=== PATIENT | male | born 1945 | race Caucasian/White ===

== ENCOUNTER → 2020-08-01 | Outpatient (CLI) | payer OTHER ==
[~2020-08-01] MED LIST: ACET500C OR; ALLE25CA OR; COUM10TA OR; IBUP400T OR; LOVE1INJ SC; PROT1TAB2 OR; TERA10CA3 PO; TYLENOL PM PO; [UNRECOGNIZED DRUG - OTHER] PO
--- NOTE | 2020-08-02 02:03 | REP ---
INDICATION: PRIMARY OSTEOARTHRITIS RIGHT KNEE COMPARISON: None. TECHNIQUE: AP, lateral, bilateral oblique views right and left knee. FINDINGS: Right knee demonstrates subchondral sclerosis along the tibial plateau and posterior patellar contour along with associated tricompartmental joint space narrowing. Cortical irregularity and early spurring identified primarily involving the femoral condyles and patella. No acute fracture or dislocation. No definite effusion. Right knee demonstrates subchondral sclerosis involving the tibial plateau and posterior patellar contour along with tricompartmental joint space narrowing. Cortical irregularity and early spurring identified involving the femoral condyles and patella. No acute fracture or dislocation. No definite effusion. IMPRESSION: Moderate relatively symmetric tricompartmental osteoarthritic degenerative changes. <Electronically signed by Apollo Rea > 08/02/20 0159
== END ==
LOC: M WUC 14:10
PROVIDERS: ATTEND Internal Medicine
DX: M17.11 Unilateral primary osteoarthritis, right knee (principal)

== ENCOUNTER 2022-05-21 07:32 | Inpatient (IN) | payer OTHER, MEDICARE ==
[~2022-05-21] VITALS: Ht 165.1 cm; Wt 114.5 kg
[2022-05-21 08:29] LABS: RSV AMPLIFICATION NEGATIVE (NEGATIVE)
[2022-05-21 08:35] LABS: BASO % 0.3 % (0.0-1.0); EOS # 0.1 10^3/uL (0.0-0.5); EOS % 0.6 % (0.0-3.0); HEMATOCRIT 32.9 % (42.0-52.0); HEMOGLOBIN 11.5 g/dl (13.5-17.5); LYMPH # 0.5 10^3/uL (1.5-5.0); LYMPH % 5.3 % (24.0-44.0); MEAN CORPUSCULAR HEMOGLOBIN 31.4 pg (27.0-33.0); MEAN CORPUSCULAR VOLUME 89.9 fl (80.0-96.0); MONO # 0.7 10^3/uL (0.0-0.8); MONO % 8.3 % (2.0-8.0); NEUTROPHILS # 7.4 10^3/uL (1.5-8.5); NEUTROPHILS % 85.2 % (36.0-66.0); PLATELET COUNT, AUTOMATED 195 10^3/uL (150-450); RED BLOOD COUNT 3.66 10^6/uL (4.30-6.10); WHITE BLOOD COUNT 8.7 10^3/uL (4.0-10.0)
[2022-05-21 08:46] LABS: INR 1.22; PROTHROMBIN TIME 15.7 SECONDS (12.5-14.5)
[2022-05-21 09:05] LABS: ETHYL ALCOHOL (ETHANOL) 0.003 % (0.000-0.010); LIPASE 205 U/L (12-53)
[2022-05-21 09:07] LABS: ALBUMIN 3.1 G/DL (3.2-5.2); ALKALINE PHOSPHATASE 264 U/L (46-116); ALT/SGPT 79 U/L (7.0-40); AST/SGOT 63 U/L (<34); BILIRUBIN,TOTAL 1.8 MG/DL (0.3-1.2); BLOOD UREA NITROGEN 23 MG/DL (9-23); CALCIUM LEVEL 8.8 MG/DL (8.3-10.6); CARBON DIOXIDE LEVEL 21 MMOL/L (20-31); CHLORIDE LEVEL 97 MMOL/L (98-107); CREATININE FOR GFR 1.03 MG/DL (0.70-1.30); GLOMERULAR FILTRATION RATE > 60.0 (>42); GLUCOSE, FASTING 106 MG/DL (74-106); POTASSIUM SERUM 3.2 MMOL/L (3.5-5.1); SODIUM LEVEL 131 MMOL/L (136-145); TOTAL PROTEIN 5.9 G/DL (5.7-8.2)
[2022-05-21] MEDS ORDERED: LIDOCAINE 2% 5ML JELLY UROJET TOP ONE (10:55)
[2022-05-21] MEDS ORDERED: POTASSIUM CHLORIDE 10MEQ SR TABLET PO ONE (14:40)
[2022-05-21] MEDS ORDERED: atenoloL 25 MG TAB PO ONE (14:40)
[2022-05-21] MEDS ORDERED: cloNIDine 0.1MG TABLET PO ONE (14:45)
[2022-05-21 15:22] LABS: MAGNESIUM LEVEL 2.1 MG/DL (1.8-2.4)
[2022-05-21 16:46] LABS: ERYTHROCYTE SEDIMENTATION RATE 33 mm/hr (0-20)
[2022-05-21] MEDS ORDERED: METOPROLOL TART 50 MG TAB PO ONE (17:05)
[2022-05-21] MEDS: ANALGESIC BALM CRM 3OZ TOP SCH (17:30)
[2022-05-21 18:30] VITALS: BP 118/67
[2022-05-21 18:45] VITALS: BP 118/64
[2022-05-21 19:16] VITALS: BP_SYST 115; BP_SYST 118; BP_DIAS 64; BP_DIAS 65
[2022-05-21 19:21] LABS: HEMOGLOBIN A1c 4.7 % (4.0-6.0)
[2022-05-21] MEDS: NS 1,000 ML IV SCH (19:28)
[2022-05-21 19:32] LABS: CK-MB VALUE MASS 4.1 NG/ML (<3.6); MB/CK RELATIVE INDEX 2.84 (< OR =4)
[2022-05-21 19:36] LABS: THYROID STIMULATING HORMONE 1.271 uIU/ML (0.55-4.78)
[2022-05-21] MEDS: THIAMINE 100 MG TAB PO SCH (20:39)
[2022-05-21] MEDS ORDERED: XARE20TA PO (21:00)
[2022-05-21] MEDS ORDERED: OMEP40CA5 PO (21:00)
[2022-05-21] MEDS ORDERED: ROSU40TA4 PO (21:00)
[2022-05-21] MEDS ORDERED: CYCL-707 PO (21:00)
[2022-05-21] MEDS ORDERED: DOXY100C3 PO (21:00)
[2022-05-21] MEDS ORDERED: LIDO5DIS41 TD (21:06)
[2022-05-21] MEDS ORDERED: THERTAB21 PO (21:06)
[2022-05-21] MEDS ORDERED: XIID5DRO OD (21:06)
[2022-05-21] MEDS ORDERED: DULO30CA9 PO (21:06)
[2022-05-21] MEDS ORDERED: FAMO40TA3 PO (21:06)
[2022-05-21] MEDS ORDERED: REFR0.5D8 OP (21:06)
[2022-05-21] MEDS ORDERED: CAPS42.54 TOP (21:06)
[2022-05-21] MEDS ORDERED: SUCR1ORA2 PO (21:06)
[2022-05-21] MEDS ORDERED: TRAM50TA2 PO (21:07)
[2022-05-21] MEDS ORDERED: ZOLP10TA2 PO (21:07)
[2022-05-21] MEDS ORDERED: TERA2CAP3 PO (21:07)
[2022-05-21] MEDS ORDERED: med rec comment (21:08)
[2022-05-21] MEDS ORDERED: HOME MED LIST COMPLETE! XX SCH (21:10)
[2022-05-21 22:00] VITALS: BP_SYST 115; BP_SYST 131; BP_DIAS 65; BP_DIAS 71
[2022-05-21] MEDS: FINASTERIDE 5MG TAB PO SCH (22:53)
[2022-05-21] MEDS: RIVAROXABAN 20MG TAB (XARELTO) PO SCH (22:53)
[2022-05-21] MEDS: LORazepam 2 MG TAB PO PRN (22:57)
[2022-05-22] VITALS (10 sets, daily range): BP systolic 112–161; BP diastolic 58–80
[2022-05-22] MEDS ORDERED: METOPROLOL TART 25 MG TABLET PO SCH
[2022-05-22] MEDS: ANALGESIC BALM CRM 3OZ TOP SCH ×5 (04:10→22:10)
[2022-05-22] MEDS: traMADol 50 MG TAB PO PRN ×2 (04:13→20:20)
[2022-05-22] MEDS ORDERED: cefTRIAXone SOD 1 GM in D5W MINI-BAG PLUS 50 ML IV SCH (05:00)
[2022-05-22] MEDS: NS 1,000 ML IV SCH ×3 (05:07→23:10)
[2022-05-22] MEDS: METOPROLOL TART 25 MG TABLET PO SCH ×3 (06:00→19:03)
[2022-05-22] MEDS: cloNIDine 0.1MG TABLET PO SCH ×2 (06:00)
[2022-05-22 06:39] LABS: HEMATOCRIT 32.3 % (42.0-52.0); HEMOGLOBIN 11.3 g/dl (13.5-17.5); MEAN CORPUSCULAR HEMOGLOBIN 31.5 pg (27.0-33.0); PLATELET COUNT, AUTOMATED 245 10^3/uL (150-450); RED BLOOD COUNT 3.59 10^6/uL (4.30-6.10); WHITE BLOOD COUNT 8.6 10^3/uL (4.0-10.0)
[2022-05-22] MEDS: cefTRIAXone SOD 1 GM in D5W MINI-BAG PLUS 50 ML IV SCH (06:50)
[2022-05-22 07:07] LABS: LIPASE 197 U/L (12-53)
[2022-05-22 07:11] LABS: ALKALINE PHOSPHATASE 228 U/L (46-116); ALT/SGPT 77 U/L (7.0-40); AST/SGOT 61 U/L (<34); BILIRUBIN,TOTAL 1.5 MG/DL (0.3-1.2); BLOOD UREA NITROGEN 25 MG/DL (9-23); CALCIUM LEVEL 8.6 MG/DL (8.3-10.6); CARBON DIOXIDE LEVEL 22 MMOL/L (20-31); CHLORIDE LEVEL 102 MMOL/L (98-107); CHOLESTEROL LEVEL 84 MG/DL (<200); CHOLESTEROL RISK RATIO 3.01 (<5); CREATININE FOR GFR 0.84 MG/DL (0.70-1.30); GLOMERULAR FILTRATION RATE > 60.0 (>42); GLUCOSE, FASTING 110 MG/DL (74-106); HDL CHOLESTEROL 27.9 MG/DL (>40); LDL CHOLESTEROL 31.1 MG/DL (<100); NON-HDL-C 56 MG/DL; POTASSIUM SERUM 3.6 MMOL/L (3.5-5.1); SODIUM LEVEL 136 MMOL/L (136-145); TOTAL PROTEIN 5.4 G/DL (5.7-8.2); TRIGLYCERIDES LEVEL 125 MG/DL (<150)
[2022-05-22] MEDS: FOLIC ACID 1MG TAB PO SCH (08:56)
[2022-05-22] MEDS: MULTIVITAMINS/MINERALS THERAP 1 TAB PO SCH (08:58)
[2022-05-22] MEDS: THIAMINE 100 MG TAB PO SCH ×2 (08:58→20:13)
[2022-05-22] MEDS: POTASSIUM CHLORIDE 10MEQ SR TABLET PO SCH (08:58)
[2022-05-22] MEDS: PANTOPRAZOLE 40MG TAB (PROTONIX) PO SCH (08:58)
[2022-05-22] MEDS: RIVAROXABAN 20MG TAB (XARELTO) PO SCH (19:00)
[2022-05-22] MEDS: FINASTERIDE 5MG TAB PO SCH (20:12)
[2022-05-22] MEDS: LORazepam 2 MG TAB PO PRN ×2 (20:19→21:38)
[2022-05-22] MEDS ORDERED: zolPIDEM TARTRATE 5 MG TAB PO PRN (21:35)
[2022-05-22] MEDS ORDERED: diazePAM 10MG/2ML SYRINGE IV ONE (22:45)
[2022-05-22] MEDS: OXAZEPAM 10MG CAP PO SCH (23:07)
[2022-05-22] MEDS: LORazepam 2 MG/ML 1ML VIAL IV PRN (23:07)
[2022-05-23] VITALS (11 sets, daily range): BP systolic 158–177; BP diastolic 82–110
[2022-05-23] MEDS: METOPROLOL TART 25 MG TABLET PO SCH ×4 (00:16→18:00)
[2022-05-23] MEDS: LORazepam 2 MG/ML 1ML VIAL IV PRN ×3 (00:59→19:04)
[2022-05-23] MEDS ORDERED: LORazepam 2 MG/ML 1ML VIAL As Ordered ONE (05:33)
[2022-05-23] MEDS ORDERED: OXAZEPAM 10MG CAP As Ordered ONE (05:45)
[2022-05-23] MEDS ORDERED: cefTRIAXone SOD 1GM VIAL As Ordered ONE (05:45)
[2022-05-23] MEDS ORDERED: METOPROLOL TART 25 MG TABLET As Ordered ONE (05:46)
[2022-05-23] MEDS: OXAZEPAM 10MG CAP PO SCH (05:50)
[2022-05-23] MEDS: cefTRIAXone SOD 1 GM in D5W MINI-BAG PLUS 50 ML IV SCH (05:51)
[2022-05-23 06:56] LABS: HEMOGLOBIN 10.7 g/dl (13.5-17.5); MEAN CORPUSCULAR HEMOGLOBIN 31.4 pg (27.0-33.0); MEAN CORPUSCULAR HGB CONC 34.5 g/dl (32.0-36.5); MEAN CORPUSCULAR VOLUME 90.9 fl (80.0-96.0); PLATELET COUNT, AUTOMATED 239 10^3/uL (150-450); RED BLOOD COUNT 3.41 10^6/uL (4.30-6.10); WHITE BLOOD COUNT 7.4 10^3/uL (4.0-10.0)
[2022-05-23 07:09] LABS: LIPASE 136 U/L (12-53)
[2022-05-23 07:14] LABS: ALBUMIN 2.8 G/DL (3.2-5.2); ALKALINE PHOSPHATASE 192 U/L (46-116); ALT/SGPT 60 U/L (7.0-40); AST/SGOT 42 U/L (<34); BILIRUBIN,TOTAL 1.3 MG/DL (0.3-1.2); BLOOD UREA NITROGEN 17 MG/DL (9-23); CALCIUM LEVEL 8.1 MG/DL (8.3-10.6); CARBON DIOXIDE LEVEL 21 MMOL/L (20-31); CHLORIDE LEVEL 106 MMOL/L (98-107); GLOMERULAR FILTRATION RATE > 60.0 (>42); GLUCOSE, FASTING 103 MG/DL (74-106); MAGNESIUM LEVEL 1.8 MG/DL (1.8-2.4); POTASSIUM SERUM 3.8 MMOL/L (3.5-5.1); SODIUM LEVEL 137 MMOL/L (136-145); TOTAL PROTEIN 5.1 G/DL (5.7-8.2)
[2022-05-23] MEDS: PANTOPRAZOLE 40MG TAB (PROTONIX) PO SCH ×2 (09:00→13:27)
[2022-05-23] MEDS: MULTIVITAMINS/MINERALS THERAP 1 TAB PO SCH ×2 (09:00→13:00)
[2022-05-23] MEDS: POTASSIUM CHLORIDE 10MEQ SR TABLET PO SCH ×2 (09:00→13:12)
[2022-05-23] MEDS: THIAMINE 100 MG TAB PO SCH ×3 (09:00→20:29)
[2022-05-23] MEDS: FOLIC ACID 1MG TAB PO SCH ×2 (09:00→13:00)
[2022-05-23] MEDS ORDERED: flumazeniL 0.5MG/5ML VIAL IV STA (11:51)
[2022-05-23 12:09] LABS: ABG BASE EXCESS -2.1 (-2.0-2.0); ABG HCO3 20.9 MEQ/L (22.0-26.0); ABG O2 SATURATION 95.8 % (95.0-99.0); ABG PARTIAL PRESSURE CO2 30.2 mmHg (35.0-45.0); ABG PARTIAL PRESSURE O2 83.2 mmHg (75.0-100.0); ABG STANDARD HCO3 22.7 MEQ/L (22.0-26.0); ABG TOTAL CO2 21.9 MEQ/L (23.0-31.0); ABG pH (ARTERIAL) 7.459 UNITS (7.350-7.450)
[2022-05-23] MEDS: ANALGESIC BALM CRM 3OZ TOP SCH ×4 (13:00→20:30)
[2022-05-23] MEDS: RIVAROXABAN 20MG TAB (XARELTO) PO SCH (18:00)
[2022-05-23] MEDS: FINASTERIDE 5MG TAB PO SCH (20:29)
[2022-05-24] MEDS: METOPROLOL TART 25 MG TABLET PO SCH ×2 (00:14→05:13)
[2022-05-24] MEDS: ACETAMINOPHEN TAB 650MG DOSE (2X325MG) PO PRN (05:11)
[2022-05-24 05:13] VITALS: BP 178/108
[2022-05-24 06:00] VITALS: BP 178/108
[2022-05-24 07:17] LABS: HEMATOCRIT 32.4 % (42.0-52.0); HEMOGLOBIN 11.1 g/dl (13.5-17.5); MEAN CORPUSCULAR HEMOGLOBIN 30.7 pg (27.0-33.0); MEAN CORPUSCULAR HGB CONC 34.3 g/dl (32.0-36.5); MEAN CORPUSCULAR VOLUME 89.8 fl (80.0-96.0); PLATELET COUNT, AUTOMATED 277 10^3/uL (150-450); RED BLOOD COUNT 3.61 10^6/uL (4.30-6.10); WHITE BLOOD COUNT 8.3 10^3/uL (4.0-10.0)
[2022-05-24 07:38] LABS: LIPASE 202 U/L (12-53)
[2022-05-24 07:40] LABS: ALBUMIN 2.6 G/DL (3.2-5.2); ALKALINE PHOSPHATASE 177 U/L (46-116); ALT/SGPT 45 U/L (7.0-40); AST/SGOT 25 U/L (<34); BILIRUBIN,TOTAL 1.5 MG/DL (0.3-1.2); BLOOD UREA NITROGEN 13 MG/DL (9-23); CALCIUM LEVEL 8.5 MG/DL (8.3-10.6); CARBON DIOXIDE LEVEL 23 MMOL/L (20-31); CHLORIDE LEVEL 105 MMOL/L (98-107); CREATININE FOR GFR 0.67 MG/DL (0.70-1.30); GLOMERULAR FILTRATION RATE > 60.0 (>42); GLUCOSE, FASTING 110 MG/DL (74-106); MAGNESIUM LEVEL 1.7 MG/DL (1.8-2.4); POTASSIUM SERUM 3.9 MMOL/L (3.5-5.1); SODIUM LEVEL 135 MMOL/L (136-145); TOTAL PROTEIN 5.2 G/DL (5.7-8.2)
[2022-05-24] MEDS ORDERED: MAG SULF 1GM/100ML (MAG RUN) 1 GM in IV 1 EA IV ONE (11:00)
[2022-05-24] MEDS: FOLIC ACID 1MG TAB PO SCH (11:20)
[2022-05-24] MEDS: POTASSIUM CHLORIDE 10MEQ SR TABLET PO SCH (11:20)
[2022-05-24] MEDS: THIAMINE 100 MG TAB PO SCH (11:21)
[2022-05-24] MEDS: ANALGESIC BALM CRM 3OZ TOP SCH ×4 (11:21→20:44)
[2022-05-24] MEDS: MULTIVITAMINS/MINERALS THERAP 1 TAB PO SCH (11:21)
[2022-05-24] MEDS: atenoloL 50 MG TAB PO SCH ×2 (11:21→20:44)
[2022-05-24] MEDS: PANTOPRAZOLE 40MG TAB (PROTONIX) PO SCH (11:21)
[2022-05-24 14:29] VITALS: BP 181/85
[2022-05-24] MEDS: RIVAROXABAN 20MG TAB (XARELTO) PO SCH (18:16)
[2022-05-24] MEDS: NITROGLYCERIN 2% OINT 1 GM *U/D* PKT TOP SCH (20:43)
[2022-05-24] MEDS: FINASTERIDE 5MG TAB PO SCH (20:44)
[2022-05-24 21:55] VITALS: BP 183/90
[2022-05-24 22:23] VITALS: BP 183/90
[2022-05-24 23:39] VITALS: BP 195/113
[2022-05-25] VITALS (7 sets, daily range): BP systolic 145–173; BP diastolic 74–98
[2022-05-25] MEDS: LORazepam 2 MG/ML 1ML VIAL IV PRN ×4 (00:12→17:14)
[2022-05-25] MEDS: NITROGLYCERIN 2% OINT 1 GM *U/D* PKT TOP SCH ×4 (02:20→20:28)
[2022-05-25 06:26] LABS: HEMATOCRIT 35.4 % (42.0-52.0); HEMOGLOBIN 12.1 g/dl (13.5-17.5); MEAN CORPUSCULAR HEMOGLOBIN 30.9 pg (27.0-33.0); MEAN CORPUSCULAR HGB CONC 34.2 g/dl (32.0-36.5); MEAN CORPUSCULAR VOLUME 90.5 fl (80.0-96.0); PLATELET COUNT, AUTOMATED 314 10^3/uL (150-450); RED BLOOD COUNT 3.91 10^6/uL (4.30-6.10); WHITE BLOOD COUNT 9.8 10^3/uL (4.0-10.0)
[2022-05-25 06:48] LABS: LIPASE 192 U/L (12-53)
[2022-05-25 06:54] LABS: ALBUMIN 2.7 G/DL (3.2-5.2); ALKALINE PHOSPHATASE 171 U/L (46-116); ALT/SGPT 37 U/L (7.0-40); AST/SGOT 28 U/L (<34); BILIRUBIN,TOTAL 1.9 MG/DL (0.3-1.2); BLOOD UREA NITROGEN 15 MG/DL (9-23); CALCIUM LEVEL 8.8 MG/DL (8.3-10.6); CARBON DIOXIDE LEVEL 24 MMOL/L (20-31); CHLORIDE LEVEL 101 MMOL/L (98-107); GLOMERULAR FILTRATION RATE > 60.0 (>42); GLUCOSE, FASTING 94 MG/DL (74-106); MAGNESIUM LEVEL 1.9 MG/DL (1.8-2.4); POTASSIUM SERUM 4.5 MMOL/L (3.5-5.1); SODIUM LEVEL 134 MMOL/L (136-145); TOTAL PROTEIN 5.5 G/DL (5.7-8.2)
[2022-05-25] MEDS: FOLIC ACID 1MG TAB PO SCH (08:48)
[2022-05-25] MEDS: MULTIVITAMINS/MINERALS THERAP 1 TAB PO SCH (08:49)
[2022-05-25] MEDS: PANTOPRAZOLE 40MG TAB (PROTONIX) PO SCH (08:49)
[2022-05-25] MEDS: atenoloL 50 MG TAB PO SCH ×2 (08:49→20:27)
[2022-05-25] MEDS: POTASSIUM CHLORIDE 10MEQ SR TABLET PO SCH (08:50)
[2022-05-25] MEDS: ANALGESIC BALM CRM 3OZ TOP SCH ×4 (09:00→21:18)
[2022-05-25] MEDS: RIVAROXABAN 20MG TAB (XARELTO) PO SCH (18:00)
[2022-05-25] MEDS: FINASTERIDE 5MG TAB PO SCH (20:27)
[2022-05-26] VITALS (7 sets, daily range): BP systolic 147–180; BP diastolic 76–102
[2022-05-26] MEDS: NITROGLYCERIN 2% OINT 1 GM *U/D* PKT TOP SCH ×4 (01:56→22:20)
[2022-05-26] MEDS: LORazepam 2 MG/ML 1ML VIAL IV PRN ×3 (02:14→14:12)
[2022-05-26 06:14] LABS: HEMATOCRIT 36.2 % (42.0-52.0); HEMOGLOBIN 12.4 g/dl (13.5-17.5); MEAN CORPUSCULAR HEMOGLOBIN 31.5 pg (27.0-33.0); MEAN CORPUSCULAR HGB CONC 34.3 g/dl (32.0-36.5); MEAN CORPUSCULAR VOLUME 91.9 fl (80.0-96.0); PLATELET COUNT, AUTOMATED 341 10^3/uL (150-450); RED BLOOD COUNT 3.94 10^6/uL (4.30-6.10); WHITE BLOOD COUNT 9.7 10^3/uL (4.0-10.0)
[2022-05-26 06:41] LABS: LIPASE 183 U/L (12-53)
[2022-05-26 06:44] LABS: ALBUMIN 2.8 G/DL (3.2-5.2); ALKALINE PHOSPHATASE 168 U/L (46-116); ALT/SGPT 34 U/L (7.0-40); AST/SGOT 23 U/L (<34); BILIRUBIN,TOTAL 1.8 MG/DL (0.3-1.2); BLOOD UREA NITROGEN 17 MG/DL (9-23); CALCIUM LEVEL 9.1 MG/DL (8.3-10.6); CARBON DIOXIDE LEVEL 25 MMOL/L (20-31); CHLORIDE LEVEL 99 MMOL/L (98-107); CREATININE FOR GFR 0.69 MG/DL (0.70-1.30); GLOMERULAR FILTRATION RATE > 60.0 (>42); GLUCOSE, FASTING 81 MG/DL (74-106); MAGNESIUM LEVEL 2.1 MG/DL (1.8-2.4); POTASSIUM SERUM 4.4 MMOL/L (3.5-5.1); SODIUM LEVEL 134 MMOL/L (136-145); TOTAL PROTEIN 5.5 G/DL (5.7-8.2)
[2022-05-26] MEDS ORDERED: NS 1,000 ML IV ONE (07:20)
[2022-05-26] MEDS ORDERED: atenoloL 50 MG TAB PO ONE (08:00)
[2022-05-26] MEDS: **hydrALAZINE HCL** 25 MG TAB PO SCH ×2 (08:43→14:11)
[2022-05-26] MEDS: PANTOPRAZOLE 40MG TAB (PROTONIX) PO SCH (08:44)
[2022-05-26] MEDS: POTASSIUM CHLORIDE 10MEQ SR TABLET PO SCH (08:45)
[2022-05-26] MEDS: FOLIC ACID 1MG TAB PO SCH (08:46)
[2022-05-26] MEDS: ANALGESIC BALM CRM 3OZ TOP SCH ×4 (09:00→20:20)
[2022-05-26] MEDS: MULTIVITAMINS/MINERALS THERAP 1 TAB PO SCH (09:00)
[2022-05-26] MEDS: NS 1,000 ML IV SCH ×2 (12:26→20:25)
[2022-05-26] MEDS ORDERED: OXAZEPAM 15MG CAP PO PRN (15:40)
[2022-05-26] MEDS: cloNIDine 0.2 MG TAB PO SCH ×2 (18:00→18:31)
[2022-05-26] MEDS ORDERED: RIVAROXABAN 20MG TAB (XARELTO) PO SCH (18:00)
[2022-05-26] MEDS: RIVAROXABAN 20MG TAB (XARELTO) PO SCH (20:19)
[2022-05-26] MEDS: FINASTERIDE 5MG TAB PO SCH (20:20)
[2022-05-27 00:22] VITALS: BP 133/75
[2022-05-27] MEDS: NS 1,000 ML IV SCH ×3 (05:14→16:13)
[2022-05-27] MEDS: cloNIDine 0.2 MG TAB PO SCH ×4 (05:14→17:47)
[2022-05-27 06:00] VITALS: BP 136/74
[2022-05-27 06:21] LABS: HEMOGLOBIN 11.8 g/dl (13.5-17.5); MEAN CORPUSCULAR HEMOGLOBIN 31.1 pg (27.0-33.0); MEAN CORPUSCULAR HGB CONC 33.7 g/dl (32.0-36.5); MEAN CORPUSCULAR VOLUME 92.3 fl (80.0-96.0); PLATELET COUNT, AUTOMATED 320 10^3/uL (150-450); RED BLOOD COUNT 3.79 10^6/uL (4.30-6.10); WHITE BLOOD COUNT 9.4 10^3/uL (4.0-10.0)
[2022-05-27 06:32] LABS: LIPASE 220 U/L (12-53)
[2022-05-27 06:35] LABS: ALBUMIN 2.7 G/DL (3.2-5.2); ALKALINE PHOSPHATASE 150 U/L (46-116); ALT/SGPT 31 U/L (7.0-40); AST/SGOT 48 U/L (<34); BILIRUBIN,TOTAL 1.7 MG/DL (0.3-1.2); BLOOD UREA NITROGEN 18 MG/DL (9-23); CALCIUM LEVEL 8.8 MG/DL (8.3-10.6); CARBON DIOXIDE LEVEL 20 MMOL/L (20-31); CHLORIDE LEVEL 103 MMOL/L (98-107); GLOMERULAR FILTRATION RATE > 60.0 (>42); GLUCOSE, FASTING 86 MG/DL (74-106); MAGNESIUM LEVEL 2.1 MG/DL (1.8-2.4); POTASSIUM SERUM 4.7 MMOL/L (3.5-5.1); SODIUM LEVEL 134 MMOL/L (136-145); TOTAL PROTEIN 5.4 G/DL (5.7-8.2)
[2022-05-27 06:48] VITALS: BP 136/74
[2022-05-27] MEDS: LEVALBUTEROL 1.25MG 0.5ML CONCENTRATE NEB INH SCH ×5 (08:00→23:14)
[2022-05-27] MEDS: ANALGESIC BALM CRM 3OZ TOP SCH ×4 (09:00→21:41)
[2022-05-27] MEDS: POTASSIUM CHLORIDE 10MEQ SR TABLET PO SCH (09:00)
[2022-05-27] MEDS: FOLIC ACID 1MG TAB PO SCH (11:57)
[2022-05-27] MEDS: MULTIVITAMINS/MINERALS THERAP 1 TAB PO SCH (11:58)
[2022-05-27] MEDS: PANTOPRAZOLE 40MG TAB (PROTONIX) PO SCH (11:59)
[2022-05-27] MEDS: atenoloL 50 MG TAB PO SCH (12:02)
[2022-05-27 14:00] VITALS: BP 133/65
[2022-05-27] MEDS: NITROGLYCERIN 2% OINT 1 GM *U/D* PKT TOP SCH ×2 (16:12→21:39)
[2022-05-27] MEDS: RIVAROXABAN 20MG TAB (XARELTO) PO SCH (17:48)
[2022-05-27] MEDS: FINASTERIDE 5MG TAB PO SCH (21:40)
[2022-05-27] MEDS: ACETAMINOPHEN TAB 650MG DOSE (2X325MG) PO PRN (21:40)
[2022-05-27 22:00] VITALS: BP 138/73
[2022-05-28] MEDS: LEVALBUTEROL 1.25MG 0.5ML CONCENTRATE NEB INH SCH ×6 (03:33→23:20)
[2022-05-28] MEDS: ACETAMINOPHEN TAB 650MG DOSE (2X325MG) PO PRN ×3 (03:53→21:16)
[2022-05-28] MEDS: NS 1,000 ML IV SCH ×2 (03:54→12:54)
[2022-05-28] MEDS ORDERED: hydrOXYzine 50 MG TAB PO ONE (04:00)
[2022-05-28 06:00] VITALS: BP 179/89
[2022-05-28 06:19] LABS: HEMOGLOBIN 11.7 g/dl (13.5-17.5); MEAN CORPUSCULAR HEMOGLOBIN 31.5 pg (27.0-33.0); MEAN CORPUSCULAR HGB CONC 34.4 g/dl (32.0-36.5); MEAN CORPUSCULAR VOLUME 91.4 fl (80.0-96.0); PLATELET COUNT, AUTOMATED 257 10^3/uL (150-450); RED BLOOD COUNT 3.72 10^6/uL (4.30-6.10)
[2022-05-28 06:39] LABS: LIPASE 186 U/L (12-53)
[2022-05-28 06:41] LABS: ALBUMIN 2.7 G/DL (3.2-5.2); ALKALINE PHOSPHATASE 145 U/L (46-116); ALT/SGPT 27 U/L (7.0-40); AST/SGOT 32 U/L (<34); BILIRUBIN,TOTAL 1.6 MG/DL (0.3-1.2); BLOOD UREA NITROGEN 12 MG/DL (9-23); CALCIUM LEVEL 8.6 MG/DL (8.3-10.6); CARBON DIOXIDE LEVEL 22 MMOL/L (20-31); CHLORIDE LEVEL 105 MMOL/L (98-107); CREATININE FOR GFR 0.59 MG/DL (0.70-1.30); GLOMERULAR FILTRATION RATE > 60.0 (>42); GLUCOSE, FASTING 96 MG/DL (74-106); MAGNESIUM LEVEL 1.7 MG/DL (1.8-2.4); POTASSIUM SERUM 4.1 MMOL/L (3.5-5.1); SODIUM LEVEL 137 MMOL/L (136-145); TOTAL PROTEIN 5.3 G/DL (5.7-8.2)
[2022-05-28] MEDS: cloNIDine 0.2 MG TAB PO SCH ×4 (06:45→17:10)
[2022-05-28] MEDS: POTASSIUM CHLORIDE 10MEQ SR TABLET PO SCH (09:00)
[2022-05-28] MEDS: MULTIVITAMINS/MINERALS THERAP 1 TAB PO SCH (09:12)
[2022-05-28] MEDS: PANTOPRAZOLE 40MG TAB (PROTONIX) PO SCH (09:12)
[2022-05-28] MEDS: atenoloL 50 MG TAB PO SCH (09:13)
[2022-05-28] MEDS: FOLIC ACID 1MG TAB PO SCH (09:13)
[2022-05-28] MEDS: ANALGESIC BALM CRM 3OZ TOP SCH ×4 (09:13→21:17)
[2022-05-28 12:00] VITALS: BP 170/88
[2022-05-28] MEDS ORDERED: MAG SULF 1GM/100ML (MAG RUN) 1 GM in IV 1 EA IV ONE (13:40)
[2022-05-28] MEDS ORDERED: BISACODYL 10MG SUPP PR PRN (16:25)
[2022-05-28] MEDS ORDERED: BISACODYL 10MG SUPP PR ONE (16:25)
[2022-05-28 16:29] VITALS: BP 168/87
[2022-05-28] MEDS: NITROGLYCERIN 2% OINT 1 GM *U/D* PKT TOP SCH ×2 (17:09→21:15)
[2022-05-28] MEDS: RIVAROXABAN 20MG TAB (XARELTO) PO SCH (17:10)
[2022-05-28] MEDS ORDERED: LORazepam 0.5 MG TAB PO ONE (20:35)
[2022-05-28 20:54] VITALS: BP 164/84
[2022-05-28] MEDS: D5W/0.9% SODIUM CHLORIDE 1,000 ML IV SCH (21:15)
[2022-05-28] MEDS: SENOKOT S TAB PO SCH (21:16)
[2022-05-28] MEDS: FINASTERIDE 5MG TAB PO SCH (21:16)
[2022-05-28 22:00] VITALS: BP 164/84
[2022-05-29] MEDS: cloNIDine 0.2 MG TAB PO SCH ×5 (00:41→22:57)
[2022-05-29] MEDS: ACETAMINOPHEN TAB 650MG DOSE (2X325MG) PO PRN ×2 (02:28→22:57)
[2022-05-29] MEDS: LEVALBUTEROL 1.25MG 0.5ML CONCENTRATE NEB INH SCH ×4 (03:33→19:18)
[2022-05-29 06:00] VITALS: BP 129/68
[2022-05-29] MEDS: D5W/0.9% SODIUM CHLORIDE 1,000 ML IV SCH ×2 (06:16→17:36)
[2022-05-29 08:00] VITALS: BP 160/81
[2022-05-29] MEDS: MULTIVITAMINS/MINERALS THERAP 1 TAB PO SCH (08:53)
[2022-05-29] MEDS: SENOKOT S TAB PO SCH ×2 (08:54→22:58)
[2022-05-29] MEDS: POTASSIUM CHLORIDE 10MEQ SR TABLET PO SCH (08:54)
[2022-05-29] MEDS: FOLIC ACID 1MG TAB PO SCH (08:54)
[2022-05-29] MEDS: PANTOPRAZOLE 40MG TAB (PROTONIX) PO SCH (08:54)
[2022-05-29] MEDS: atenoloL 50 MG TAB PO SCH (08:55)
[2022-05-29] MEDS: ANALGESIC BALM CRM 3OZ TOP SCH ×4 (08:55→22:59)
[2022-05-29] MEDS ORDERED: QUEtiapine FUMARATE 25 MG TAB PO SCH (09:00)
[2022-05-29] MEDS: LORazepam 2 MG TAB PO PRN (11:41)
[2022-05-29 14:06] VITALS: BP 160/81
[2022-05-29] MEDS: NITROGLYCERIN 2% OINT 1 GM *U/D* PKT TOP SCH ×2 (16:40→22:57)
[2022-05-29] MEDS: RIVAROXABAN 20MG TAB (XARELTO) PO SCH (17:36)
[2022-05-29] MEDS: QUEtiapine FUMARATE 25 MG TAB PO SCH (17:36)
[2022-05-29 22:00] VITALS: BP 146/86
[2022-05-29] MEDS: FINASTERIDE 5MG TAB PO SCH (22:59)
[2022-05-30] MEDS: LEVALBUTEROL 1.25MG 0.5ML CONCENTRATE NEB INH SCH ×4 (02:00→19:28)
[2022-05-30] MEDS: cloNIDine 0.2 MG TAB PO SCH ×3 (04:34→18:28)
[2022-05-30] MEDS: ACETAMINOPHEN TAB 650MG DOSE (2X325MG) PO PRN (04:35)
[2022-05-30 06:00] VITALS: BP 169/92
[2022-05-30 06:32] LABS: BASO # 0.1 10^3/uL (0.0-0.2); EOS # 0.3 10^3/uL (0.0-0.5); EOS % 4.5 % (0.0-3.0); HEMATOCRIT 36.4 % (42.0-52.0); HEMOGLOBIN 12.1 g/dl (13.5-17.5); LYMPH # 1.1 10^3/uL (1.5-5.0); LYMPH % 17.8 % (24.0-44.0); MEAN CORPUSCULAR HEMOGLOBIN 30.7 pg (27.0-33.0); MEAN CORPUSCULAR HGB CONC 33.2 g/dl (32.0-36.5); MEAN CORPUSCULAR VOLUME 92.4 fl (80.0-96.0); MONO # 0.7 10^3/uL (0.0-0.8); MONO % 10.8 % (2.0-8.0); NEUTROPHILS # 3.9 10^3/uL (1.5-8.5); NEUTROPHILS % 65.4 % (36.0-66.0); PLATELET COUNT, AUTOMATED 308 10^3/uL (150-450); RED BLOOD COUNT 3.94 10^6/uL (4.30-6.10)
[2022-05-30 07:05] LABS: BLOOD UREA NITROGEN 5 MG/DL (9-23); CALCIUM LEVEL 9.1 MG/DL (8.3-10.6); CARBON DIOXIDE LEVEL 24 MMOL/L (20-31); CHLORIDE LEVEL 110 MMOL/L (98-107); CREATININE FOR GFR 0.59 MG/DL (0.70-1.30); GLOMERULAR FILTRATION RATE > 60.0 (>42); GLUCOSE, FASTING 112 MG/DL (74-106); MAGNESIUM LEVEL 1.8 MG/DL (1.8-2.4); POTASSIUM SERUM 4.2 MMOL/L (3.5-5.1); SODIUM LEVEL 142 MMOL/L (136-145)
[2022-05-30 08:00] VITALS: BP 169/92
[2022-05-30] MEDS: POTASSIUM CHLORIDE 10MEQ SR TABLET PO SCH (09:00)
[2022-05-30] MEDS: MULTIVITAMINS/MINERALS THERAP 1 TAB PO SCH (09:26)
[2022-05-30] MEDS: PANTOPRAZOLE 40MG TAB (PROTONIX) PO SCH (09:27)
[2022-05-30] MEDS: FOLIC ACID 1MG TAB PO SCH (09:27)
[2022-05-30] MEDS: SENOKOT S TAB PO SCH ×3 (09:28→21:57)
[2022-05-30] MEDS: atenoloL 50 MG TAB PO SCH (09:28)
[2022-05-30] MEDS: D5W/0.9% SODIUM CHLORIDE 1,000 ML IV SCH (09:29)
[2022-05-30] MEDS: ANALGESIC BALM CRM 3OZ TOP SCH ×4 (09:29→21:58)
[2022-05-30 14:00] VITALS: BP 162/90
[2022-05-30] MEDS: NITROGLYCERIN 2% OINT 1 GM *U/D* PKT TOP SCH ×2 (16:50→21:59)
[2022-05-30] MEDS: RIVAROXABAN 20MG TAB (XARELTO) PO SCH (18:28)
[2022-05-30] MEDS: QUEtiapine FUMARATE 25 MG TAB PO SCH (18:28)
[2022-05-30 19:47] VITALS: BP 104/67
[2022-05-30] MEDS: LORazepam 2 MG TAB PO PRN (19:52)
[2022-05-30] MEDS: FINASTERIDE 5MG TAB PO SCH ×2 (21:00→21:57)
[2022-05-30 22:00] VITALS: BP_SYST 104; BP_SYST 114; BP_DIAS 66; BP_DIAS 67
[2022-05-31] MEDS: LEVALBUTEROL 1.25MG 0.5ML CONCENTRATE NEB INH SCH ×4 (01:38→19:34)
[2022-05-31 02:27] VITALS: BP 146/87
[2022-05-31] MEDS: LORazepam 2 MG TAB PO PRN (02:38)
[2022-05-31 03:30] VITALS: BP 98/68
[2022-05-31 06:00] VITALS: BP 166/80
[2022-05-31 06:04] LABS: BASO # 0.1 10^3/uL (0.0-0.2); BASO % 1.1 % (0.0-1.0); EOS # 0.3 10^3/uL (0.0-0.5); EOS % 3.9 % (0.0-3.0); HEMATOCRIT 35.3 % (42.0-52.0); HEMOGLOBIN 11.9 g/dl (13.5-17.5); LYMPH # 1.6 10^3/uL (1.5-5.0); LYMPH % 24.5 % (24.0-44.0); MEAN CORPUSCULAR HEMOGLOBIN 30.8 pg (27.0-33.0); MEAN CORPUSCULAR HGB CONC 33.7 g/dl (32.0-36.5); MEAN CORPUSCULAR VOLUME 91.5 fl (80.0-96.0); MONO # 0.6 10^3/uL (0.0-0.8); MONO % 9.7 % (2.0-8.0); NEUTROPHILS # 3.9 10^3/uL (1.5-8.5); NEUTROPHILS % 60.3 % (36.0-66.0); PLATELET COUNT, AUTOMATED 314 10^3/uL (150-450); RED BLOOD COUNT 3.86 10^6/uL (4.30-6.10); WHITE BLOOD COUNT 6.5 10^3/uL (4.0-10.0)
[2022-05-31 06:30] LABS: BLOOD UREA NITROGEN 10 MG/DL (9-23); CALCIUM LEVEL 8.9 MG/DL (8.3-10.6); CARBON DIOXIDE LEVEL 26 MMOL/L (20-31); CHLORIDE LEVEL 106 MMOL/L (98-107); GLOMERULAR FILTRATION RATE > 60.0 (>42); GLUCOSE, FASTING 93 MG/DL (74-106); MAGNESIUM LEVEL 1.8 MG/DL (1.8-2.4); POTASSIUM SERUM 3.9 MMOL/L (3.5-5.1); SODIUM LEVEL 140 MMOL/L (136-145)
[2022-05-31] MEDS: cloNIDine 0.2 MG TAB PO SCH ×2 (06:32)
[2022-05-31] MEDS: POTASSIUM CHLORIDE 10MEQ SR TABLET PO SCH (09:00)
[2022-05-31] MEDS: SENOKOT S TAB PO SCH ×2 (09:00→21:00)
[2022-05-31] MEDS: MULTIVITAMINS/MINERALS THERAP 1 TAB PO SCH (09:00)
[2022-05-31] MEDS: atenoloL 50 MG TAB PO SCH (09:00)
[2022-05-31] MEDS: FOLIC ACID 1MG TAB PO SCH (09:00)
[2022-05-31] MEDS: PANTOPRAZOLE 40MG TAB (PROTONIX) PO SCH (09:00)
[2022-05-31] MEDS: ANALGESIC BALM CRM 3OZ TOP SCH ×4 (09:00→23:55)
[2022-05-31] MEDS ORDERED: OLANZapine ORAL DISINTEGRATING TAB 5MG PO PRN (11:05)
[2022-05-31 13:03] VITALS: BP 165/81
[2022-05-31 14:00] VITALS: BP_SYST 139; BP_SYST 165; BP_DIAS 115; BP_DIAS 81
[2022-05-31] MEDS: RIVAROXABAN 20MG TAB (XARELTO) PO SCH (18:18)
[2022-05-31] MEDS: QUEtiapine FUMARATE 25 MG TAB PO SCH (18:18)
[2022-05-31] MEDS ORDERED: D5W/0.9% SODIUM CHLORIDE 1,000 ML IV SCH (20:55)
[2022-05-31 22:00] VITALS: BP 115/79
[2022-05-31] MEDS: TERAZOSIN 1 MG CAP PO SCH (23:35)
[2022-05-31] MEDS: ROSUVASTATIN 10 MG TAB (CRESTOR) PO SCH (23:35)
[2022-05-31] MEDS: FINASTERIDE 5MG TAB PO SCH (23:35)
[2022-05-31] MEDS: ACETAMINOPHEN TAB 650MG DOSE (2X325MG) PO PRN (23:36)
[2022-06-01] MEDS: LEVALBUTEROL 1.25MG 0.5ML CONCENTRATE NEB INH SCH ×4 (01:07→19:56)
[2022-06-01 06:00] VITALS: BP_SYST 131; BP_SYST 136; BP_DIAS 69; BP_DIAS 79
[2022-06-01 06:59] LABS: BASO # 0.1 10^3/uL (0.0-0.2); BASO % 1.2 % (0.0-1.0); EOS # 0.2 10^3/uL (0.0-0.5); EOS % 3.8 % (0.0-3.0); HEMATOCRIT 36.7 % (42.0-52.0); HEMOGLOBIN 12.3 g/dl (13.5-17.5); LYMPH # 1.3 10^3/uL (1.5-5.0); MEAN CORPUSCULAR HEMOGLOBIN 30.7 pg (27.0-33.0); MEAN CORPUSCULAR HGB CONC 33.5 g/dl (32.0-36.5); MEAN CORPUSCULAR VOLUME 91.5 fl (80.0-96.0); MONO # 0.5 10^3/uL (0.0-0.8); MONO % 9.3 % (2.0-8.0); NEUTROPHILS % 60.3 % (36.0-66.0); PLATELET COUNT, AUTOMATED 280 10^3/uL (150-450); RED BLOOD COUNT 4.01 10^6/uL (4.30-6.10)
[2022-06-01 07:31] LABS: BLOOD UREA NITROGEN 13 MG/DL (9-23); CALCIUM LEVEL 8.9 MG/DL (8.3-10.6); CARBON DIOXIDE LEVEL 27 MMOL/L (20-31); CHLORIDE LEVEL 107 MMOL/L (98-107); CREATININE FOR GFR 0.68 MG/DL (0.70-1.30); GLOMERULAR FILTRATION RATE > 60.0 (>42); GLUCOSE, FASTING 115 MG/DL (74-106); MAGNESIUM LEVEL 1.9 MG/DL (1.8-2.4); POTASSIUM SERUM 4.4 MMOL/L (3.5-5.1); SODIUM LEVEL 140 MMOL/L (136-145)
[2022-06-01 08:00] VITALS: BP 133/67
[2022-06-01] MEDS: POTASSIUM CHLORIDE 10MEQ SR TABLET PO SCH (09:00)
[2022-06-01] MEDS: MULTIVITAMINS/MINERALS THERAP 1 TAB PO SCH (09:40)
[2022-06-01] MEDS: PANTOPRAZOLE 40MG TAB (PROTONIX) PO SCH (09:40)
[2022-06-01] MEDS: BISACODYL 10MG SUPP PR SCH (09:40)
[2022-06-01] MEDS: FOLIC ACID 1MG TAB PO SCH (09:40)
[2022-06-01] MEDS: ANALGESIC BALM CRM 3OZ TOP SCH ×4 (09:40→22:25)
[2022-06-01] MEDS: SENOKOT S TAB PO SCH ×2 (09:40→22:25)
[2022-06-01] MEDS: atenoloL 50 MG TAB PO SCH (09:41)
[2022-06-01 15:00] VITALS: BP 143/65
[2022-06-01 15:33] VITALS: BP 143/65
[2022-06-01] MEDS: QUEtiapine FUMARATE 25 MG TAB PO SCH (17:17)
[2022-06-01] MEDS: RIVAROXABAN 20MG TAB (XARELTO) PO SCH (17:17)
[2022-06-01 20:09] VITALS: BP 114/59
[2022-06-01] MEDS: ACETAMINOPHEN TAB 650MG DOSE (2X325MG) PO PRN (22:23)
[2022-06-01] MEDS: ROSUVASTATIN 10 MG TAB (CRESTOR) PO SCH (22:23)
[2022-06-01] MEDS: TERAZOSIN 1 MG CAP PO SCH (22:24)
[2022-06-01] MEDS: FINASTERIDE 5MG TAB PO SCH (22:25)
[2022-06-02] MEDS: LEVALBUTEROL 1.25MG 0.5ML CONCENTRATE NEB INH SCH ×4 (02:00→19:58)
[2022-06-02 06:13] VITALS: BP 109/58
[2022-06-02 07:10] LABS: BASO # 0.1 10^3/uL (0.0-0.2); EOS # 0.2 10^3/uL (0.0-0.5); EOS % 3.1 % (0.0-3.0); HEMOGLOBIN 11.8 g/dl (13.5-17.5); LYMPH # 1.3 10^3/uL (1.5-5.0); LYMPH % 22.3 % (24.0-44.0); MEAN CORPUSCULAR HEMOGLOBIN 30.3 pg (27.0-33.0); MEAN CORPUSCULAR HGB CONC 32.8 g/dl (32.0-36.5); MEAN CORPUSCULAR VOLUME 92.5 fl (80.0-96.0); MONO # 0.6 10^3/uL (0.0-0.8); MONO % 9.6 % (2.0-8.0); NEUTROPHILS # 3.7 10^3/uL (1.5-8.5); NEUTROPHILS % 63.7 % (36.0-66.0); PLATELET COUNT, AUTOMATED 280 10^3/uL (150-450); RED BLOOD COUNT 3.89 10^6/uL (4.30-6.10); WHITE BLOOD COUNT 5.8 10^3/uL (4.0-10.0)
[2022-06-02 07:39] LABS: BLOOD UREA NITROGEN 17 MG/DL (9-23); CALCIUM LEVEL 8.5 MG/DL (8.3-10.6); CARBON DIOXIDE LEVEL 25 MMOL/L (20-31); CHLORIDE LEVEL 105 MMOL/L (98-107); CREATININE FOR GFR 0.78 MG/DL (0.70-1.30); GLOMERULAR FILTRATION RATE > 60.0 (>42); GLUCOSE, FASTING 112 MG/DL (74-106); MAGNESIUM LEVEL 1.9 MG/DL (1.8-2.4); POTASSIUM SERUM 4.1 MMOL/L (3.5-5.1); SODIUM LEVEL 139 MMOL/L (136-145)
[2022-06-02 09:00] VITALS: BP 102/58
[2022-06-02] MEDS: atenoloL 50 MG TAB PO SCH (09:00)
[2022-06-02] MEDS: BISACODYL 10MG SUPP PR SCH (09:00)
[2022-06-02] MEDS: MULTIVITAMINS/MINERALS THERAP 1 TAB PO SCH (09:10)
[2022-06-02] MEDS: PANTOPRAZOLE 40MG TAB (PROTONIX) PO SCH (09:10)
[2022-06-02] MEDS: FOLIC ACID 1MG TAB PO SCH (09:10)
[2022-06-02] MEDS: SENOKOT S TAB PO SCH ×2 (09:10→21:34)
[2022-06-02] MEDS: ANALGESIC BALM CRM 3OZ TOP SCH ×4 (09:11→21:36)
[2022-06-02 14:45] VITALS: BP 125/67
[2022-06-02] MEDS: QUEtiapine FUMARATE 25 MG TAB PO SCH (17:01)
[2022-06-02] MEDS: RIVAROXABAN 20MG TAB (XARELTO) PO SCH (17:01)
[2022-06-02] MEDS: FINASTERIDE 5MG TAB PO SCH (21:34)
[2022-06-02] MEDS: ROSUVASTATIN 10 MG TAB (CRESTOR) PO SCH (21:34)
[2022-06-02] MEDS: TERAZOSIN 1 MG CAP PO SCH (21:36)
[2022-06-02 22:00] VITALS: BP 144/69
[2022-06-03] MEDS: LEVALBUTEROL 1.25MG 0.5ML CONCENTRATE NEB INH SCH ×4 (02:00→20:45)
[2022-06-03 06:00] VITALS: BP 156/77
[2022-06-03 06:12] LABS: BASO # 0.1 10^3/uL (0.0-0.2); BASO % 0.9 % (0.0-1.0); EOS # 0.2 10^3/uL (0.0-0.5); EOS % 2.8 % (0.0-3.0); HEMATOCRIT 33.5 % (42.0-52.0); HEMOGLOBIN 11.2 g/dl (13.5-17.5); LYMPH # 1.3 10^3/uL (1.5-5.0); LYMPH % 24.2 % (24.0-44.0); MEAN CORPUSCULAR HEMOGLOBIN 30.9 pg (27.0-33.0); MEAN CORPUSCULAR HGB CONC 33.4 g/dl (32.0-36.5); MEAN CORPUSCULAR VOLUME 92.5 fl (80.0-96.0); MONO # 0.6 10^3/uL (0.0-0.8); MONO % 11.7 % (2.0-8.0); NEUTROPHILS # 3.2 10^3/uL (1.5-8.5); NEUTROPHILS % 59.8 % (36.0-66.0); PLATELET COUNT, AUTOMATED 268 10^3/uL (150-450); RED BLOOD COUNT 3.62 10^6/uL (4.30-6.10); WHITE BLOOD COUNT 5.3 10^3/uL (4.0-10.0)
[2022-06-03 06:38] LABS: BLOOD UREA NITROGEN 21 MG/DL (9-23); CALCIUM LEVEL 8.4 MG/DL (8.3-10.6); CARBON DIOXIDE LEVEL 27 MMOL/L (20-31); CHLORIDE LEVEL 109 MMOL/L (98-107); CREATININE FOR GFR 0.79 MG/DL (0.70-1.30); GLOMERULAR FILTRATION RATE > 60.0 (>42); GLUCOSE, FASTING 114 MG/DL (74-106); SODIUM LEVEL 143 MMOL/L (136-145)
[2022-06-03] MEDS: BISACODYL 10MG SUPP PR SCH (09:00)
[2022-06-03] MEDS: ANALGESIC BALM CRM 3OZ TOP SCH ×4 (10:18→20:56)
[2022-06-03] MEDS: PANTOPRAZOLE 40MG TAB (PROTONIX) PO SCH (10:18)
[2022-06-03] MEDS: MULTIVITAMINS/MINERALS THERAP 1 TAB PO SCH (10:18)
[2022-06-03] MEDS: SENOKOT S TAB PO SCH ×2 (10:18→20:55)
[2022-06-03] MEDS: FOLIC ACID 1MG TAB PO SCH (10:18)
[2022-06-03] MEDS: atenoloL 50 MG TAB PO SCH (10:19)
[2022-06-03 14:00] VITALS: BP 126/65
[2022-06-03] MEDS: QUEtiapine FUMARATE 25 MG TAB PO SCH (17:48)
[2022-06-03] MEDS: RIVAROXABAN 20MG TAB (XARELTO) PO SCH (17:48)
[2022-06-03] MEDS: TERAZOSIN 1 MG CAP PO SCH (20:55)
[2022-06-03] MEDS: ROSUVASTATIN 10 MG TAB (CRESTOR) PO SCH (20:55)
[2022-06-03] MEDS: FINASTERIDE 5MG TAB PO SCH (20:56)
[2022-06-03] MEDS: ACETAMINOPHEN TAB 650MG DOSE (2X325MG) PO PRN (20:58)
[2022-06-03 22:00] VITALS: BP 123/55
[2022-06-04] MEDS: LEVALBUTEROL 1.25MG 0.5ML CONCENTRATE NEB INH SCH ×4 (02:27→20:00)
[2022-06-04 06:00] VITALS: BP 130/82
[2022-06-04 06:07] LABS: BASO # 0.1 10^3/uL (0.0-0.2); BASO % 0.9 % (0.0-1.0); EOS # 0.2 10^3/uL (0.0-0.5); EOS % 2.9 % (0.0-3.0); HEMATOCRIT 34.5 % (42.0-52.0); HEMOGLOBIN 11.4 g/dl (13.5-17.5); LYMPH # 1.4 10^3/uL (1.5-5.0); LYMPH % 24.4 % (24.0-44.0); MEAN CORPUSCULAR HEMOGLOBIN 30.6 pg (27.0-33.0); MEAN CORPUSCULAR VOLUME 92.5 fl (80.0-96.0); MONO # 0.6 10^3/uL (0.0-0.8); MONO % 10.8 % (2.0-8.0); NEUTROPHILS # 3.4 10^3/uL (1.5-8.5); NEUTROPHILS % 60.6 % (36.0-66.0); PLATELET COUNT, AUTOMATED 257 10^3/uL (150-450); RED BLOOD COUNT 3.73 10^6/uL (4.30-6.10); WHITE BLOOD COUNT 5.6 10^3/uL (4.0-10.0)
[2022-06-04 06:34] LABS: BLOOD UREA NITROGEN 24 MG/DL (9-23); CALCIUM LEVEL 8.9 MG/DL (8.3-10.6); CARBON DIOXIDE LEVEL 26 MMOL/L (20-31); CHLORIDE LEVEL 107 MMOL/L (98-107); CREATININE FOR GFR 0.78 MG/DL (0.70-1.30); GLOMERULAR FILTRATION RATE > 60.0 (>42); GLUCOSE, FASTING 110 MG/DL (74-106); MAGNESIUM LEVEL 1.9 MG/DL (1.8-2.4); POTASSIUM SERUM 3.8 MMOL/L (3.5-5.1); SODIUM LEVEL 140 MMOL/L (136-145)
[2022-06-04] MEDS: BISACODYL 10MG SUPP PR SCH (09:39)
[2022-06-04] MEDS: FOLIC ACID 1MG TAB PO SCH (09:39)
[2022-06-04] MEDS: SENOKOT S TAB PO SCH ×2 (09:40→20:58)
[2022-06-04] MEDS: atenoloL 50 MG TAB PO SCH (09:45)
[2022-06-04] MEDS: PANTOPRAZOLE 40MG TAB (PROTONIX) PO SCH (09:46)
[2022-06-04] MEDS: MULTIVITAMINS/MINERALS THERAP 1 TAB PO SCH (09:46)
[2022-06-04] MEDS: ANALGESIC BALM CRM 3OZ TOP SCH ×5 (09:49→20:58)
[2022-06-04 14:00] VITALS: BP 116/65
[2022-06-04] MEDS: QUEtiapine FUMARATE 25 MG TAB PO SCH (17:18)
[2022-06-04] MEDS: RIVAROXABAN 20MG TAB (XARELTO) PO SCH (17:18)
[2022-06-04 20:42] VITALS: BP 130/70
[2022-06-04] MEDS: TERAZOSIN 1 MG CAP PO SCH (20:57)
[2022-06-04] MEDS: FINASTERIDE 5MG TAB PO SCH (20:58)
[2022-06-04] MEDS: ROSUVASTATIN 10 MG TAB (CRESTOR) PO SCH (20:58)
[2022-06-05] MEDS: LEVALBUTEROL 1.25MG 0.5ML CONCENTRATE NEB INH SCH ×2 (01:40→08:45)
[2022-06-05 05:09] VITALS: BP 139/72
[2022-06-05 06:18] LABS: BASO # 0.1 10^3/uL (0.0-0.2); BASO % 0.6 % (0.0-1.0); EOS # 0.1 10^3/uL (0.0-0.5); HEMATOCRIT 36.8 % (42.0-52.0); HEMOGLOBIN 12.2 g/dl (13.5-17.5); LYMPH # 1.1 10^3/uL (1.5-5.0); LYMPH % 11.4 % (24.0-44.0); MEAN CORPUSCULAR HEMOGLOBIN 30.6 pg (27.0-33.0); MEAN CORPUSCULAR HGB CONC 33.2 g/dl (32.0-36.5); MEAN CORPUSCULAR VOLUME 92.2 fl (80.0-96.0); MONO # 0.9 10^3/uL (0.0-0.8); MONO % 8.7 % (2.0-8.0); NEUTROPHILS # 7.8 10^3/uL (1.5-8.5); NEUTROPHILS % 77.9 % (36.0-66.0); PLATELET COUNT, AUTOMATED 265 10^3/uL (150-450); RED BLOOD COUNT 3.99 10^6/uL (4.30-6.10)
[2022-06-05 06:48] LABS: BLOOD UREA NITROGEN 27 MG/DL (9-23); CALCIUM LEVEL 9.1 MG/DL (8.3-10.6); CARBON DIOXIDE LEVEL 25 MMOL/L (20-31); CHLORIDE LEVEL 105 MMOL/L (98-107); CREATININE FOR GFR 0.96 MG/DL (0.70-1.30); GLOMERULAR FILTRATION RATE > 60.0 (>42); GLUCOSE, FASTING 117 MG/DL (74-106); POTASSIUM SERUM 4.1 MMOL/L (3.5-5.1); SODIUM LEVEL 141 MMOL/L (136-145)
[2022-06-05] MEDS: SENOKOT S TAB PO SCH ×3 (09:00→21:00)
[2022-06-05] MEDS: BISACODYL 10MG SUPP PR SCH (09:00)
[2022-06-05] MEDS: MULTIVITAMINS/MINERALS THERAP 1 TAB PO SCH (09:54)
[2022-06-05] MEDS: atenoloL 50 MG TAB PO SCH (09:57)
[2022-06-05] MEDS: PANTOPRAZOLE 40MG TAB (PROTONIX) PO SCH (09:57)
[2022-06-05] MEDS: FOLIC ACID 1MG TAB PO SCH (09:57)
[2022-06-05] MEDS: ANALGESIC BALM CRM 3OZ TOP SCH ×4 (09:58→21:00)
[2022-06-05] MEDS ORDERED: NS 500 ML IV ONE (10:00)
[2022-06-05 14:00] VITALS: BP 119/60
[2022-06-05] MEDS: QUEtiapine FUMARATE 25 MG TAB PO SCH (17:20)
[2022-06-05] MEDS: RIVAROXABAN 20MG TAB (XARELTO) PO SCH (17:20)
[2022-06-05 20:00] VITALS: BP 167/79
[2022-06-05] MEDS: ROSUVASTATIN 10 MG TAB (CRESTOR) PO SCH (21:33)
[2022-06-05] MEDS: TERAZOSIN 1 MG CAP PO SCH (21:33)
[2022-06-05] MEDS: FINASTERIDE 5MG TAB PO SCH (21:34)
[2022-06-05] MEDS: ACETAMINOPHEN TAB 650MG DOSE (2X325MG) PO PRN (21:34)
[2022-06-06 06:50] VITALS: BP 104/58
[2022-06-06 08:26] VITALS: BP 144/60
[2022-06-06] MEDS: ANALGESIC BALM CRM 3OZ TOP SCH ×5 (09:00→20:14)
[2022-06-06] MEDS: SENOKOT S TAB PO SCH ×2 (09:00→20:12)
[2022-06-06] MEDS: BISACODYL 10MG SUPP PR SCH (09:00)
[2022-06-06] MEDS: MULTIVITAMINS/MINERALS THERAP 1 TAB PO SCH (10:36)
[2022-06-06] MEDS: PANTOPRAZOLE 40MG TAB (PROTONIX) PO SCH (10:36)
[2022-06-06] MEDS: FOLIC ACID 1MG TAB PO SCH (10:37)
[2022-06-06] MEDS: atenoloL 50 MG TAB PO SCH (10:38)
[2022-06-06 10:56] LABS: BASO # 0.1 10^3/uL (0.0-0.2); BASO % 1.1 % (0.0-1.0); EOS # 0.2 10^3/uL (0.0-0.5); EOS % 3.7 % (0.0-3.0); HEMATOCRIT 34.9 % (42.0-52.0); HEMOGLOBIN 11.7 g/dl (13.5-17.5); LYMPH # 1.4 10^3/uL (1.5-5.0); LYMPH % 22.3 % (24.0-44.0); MEAN CORPUSCULAR HEMOGLOBIN 31.4 pg (27.0-33.0); MEAN CORPUSCULAR HGB CONC 33.5 g/dl (32.0-36.5); MEAN CORPUSCULAR VOLUME 93.6 fl (80.0-96.0); MONO # 0.7 10^3/uL (0.0-0.8); MONO % 10.4 % (2.0-8.0); NEUTROPHILS # 3.9 10^3/uL (1.5-8.5); NEUTROPHILS % 62.2 % (36.0-66.0); PLATELET COUNT, AUTOMATED 211 10^3/uL (150-450); RED BLOOD COUNT 3.73 10^6/uL (4.30-6.10); WHITE BLOOD COUNT 6.3 10^3/uL (4.0-10.0)
[2022-06-06 11:41] LABS: ALBUMIN 2.9 G/DL (3.2-5.2); ALKALINE PHOSPHATASE 124 U/L (46-116); ALT/SGPT 40 U/L (7.0-40); AST/SGOT 23 U/L (<34); BILIRUBIN,TOTAL 1.5 MG/DL (0.3-1.2); BLOOD UREA NITROGEN 27 MG/DL (9-23); CARBON DIOXIDE LEVEL 28 MMOL/L (20-31); CHLORIDE LEVEL 109 MMOL/L (98-107); CREATININE FOR GFR 0.73 MG/DL (0.70-1.30); GLOMERULAR FILTRATION RATE > 60.0 (>42); GLUCOSE, FASTING 99 MG/DL (74-106); POTASSIUM SERUM 3.9 MMOL/L (3.5-5.1); SODIUM LEVEL 144 MMOL/L (136-145); TOTAL PROTEIN 5.7 G/DL (5.7-8.2)
[2022-06-06 14:00] VITALS: BP 136/63
[2022-06-06] MEDS: QUEtiapine FUMARATE 25 MG TAB PO SCH (17:06)
[2022-06-06] MEDS: RIVAROXABAN 20MG TAB (XARELTO) PO SCH (17:06)
[2022-06-06] MEDS: FINASTERIDE 5MG TAB PO SCH (20:11)
[2022-06-06 20:12] VITALS: BP 123/59
[2022-06-06] MEDS: ROSUVASTATIN 10 MG TAB (CRESTOR) PO SCH (20:12)
[2022-06-06] MEDS: ACETAMINOPHEN TAB 650MG DOSE (2X325MG) PO PRN (20:12)
[2022-06-06] MEDS: TERAZOSIN 1 MG CAP PO SCH (20:14)
[2022-06-07 05:07] LABS: HEMATOCRIT 34.6 % (42.0-52.0); HEMOGLOBIN 11.5 g/dl (13.5-17.5); MEAN CORPUSCULAR HEMOGLOBIN 30.7 pg (27.0-33.0); MEAN CORPUSCULAR HGB CONC 33.2 g/dl (32.0-36.5); MEAN CORPUSCULAR VOLUME 92.3 fl (80.0-96.0); PLATELET COUNT, AUTOMATED 212 10^3/uL (150-450); RED BLOOD COUNT 3.75 10^6/uL (4.30-6.10); WHITE BLOOD COUNT 5.5 10^3/uL (4.0-10.0)
[2022-06-07 05:41] LABS: ALBUMIN 2.8 G/DL (3.2-5.2); ALKALINE PHOSPHATASE 117 U/L (46-116); ALT/SGPT 37 U/L (7.0-40); AST/SGOT 23 U/L (<34); BILIRUBIN,TOTAL 1.4 MG/DL (0.3-1.2); BLOOD UREA NITROGEN 29 MG/DL (9-23); CALCIUM LEVEL 8.9 MG/DL (8.3-10.6); CARBON DIOXIDE LEVEL 27 MMOL/L (20-31); CHLORIDE LEVEL 109 MMOL/L (98-107); CREATININE FOR GFR 0.75 MG/DL (0.70-1.30); GLOMERULAR FILTRATION RATE > 60.0 (>42); GLUCOSE, FASTING 106 MG/DL (74-106); POTASSIUM SERUM 3.7 MMOL/L (3.5-5.1); SODIUM LEVEL 143 MMOL/L (136-145); TOTAL PROTEIN 5.3 G/DL (5.7-8.2)
[2022-06-07 06:14] VITALS: BP 125/59
[2022-06-07] MEDS: BISACODYL 10MG SUPP PR SCH (09:00)
[2022-06-07] MEDS: SENOKOT S TAB PO SCH ×2 (09:58→21:12)
[2022-06-07] MEDS: MULTIVITAMINS/MINERALS THERAP 1 TAB PO SCH (09:58)
[2022-06-07] MEDS: PANTOPRAZOLE 40MG TAB (PROTONIX) PO SCH (09:58)
[2022-06-07] MEDS: FOLIC ACID 1MG TAB PO SCH (09:58)
[2022-06-07] MEDS: atenoloL 50 MG TAB PO SCH (09:59)
[2022-06-07] MEDS: ANALGESIC BALM CRM 3OZ TOP SCH ×4 (09:59→21:10)
[2022-06-07 14:00] VITALS: BP 126/59
[2022-06-07] MEDS: QUEtiapine FUMARATE 25 MG TAB PO SCH (18:31)
[2022-06-07] MEDS: RIVAROXABAN 20MG TAB (XARELTO) PO SCH (18:31)
[2022-06-07 20:39] VITALS: BP 123/60
[2022-06-07] MEDS: TERAZOSIN 1 MG CAP PO SCH (21:11)
[2022-06-07] MEDS: FINASTERIDE 5MG TAB PO SCH (21:11)
[2022-06-07] MEDS: ROSUVASTATIN 10 MG TAB (CRESTOR) PO SCH (21:12)
[2022-06-08 06:01] VITALS: BP 126/62
[2022-06-08] MEDS: MULTIVITAMINS/MINERALS THERAP 1 TAB PO SCH (11:41)
[2022-06-08] MEDS: PANTOPRAZOLE 40MG TAB (PROTONIX) PO SCH (11:43)
[2022-06-08] MEDS: SENOKOT S TAB PO SCH ×2 (11:43→21:19)
[2022-06-08] MEDS: FOLIC ACID 1MG TAB PO SCH (11:43)
[2022-06-08] MEDS: BISACODYL 10MG SUPP PR SCH (11:44)
[2022-06-08] MEDS: atenoloL 50 MG TAB PO SCH (11:45)
[2022-06-08] MEDS: ANALGESIC BALM CRM 3OZ TOP SCH ×5 (11:46→21:20)
[2022-06-08 14:00] VITALS: BP 138/74
[2022-06-08] MEDS: RIVAROXABAN 20MG TAB (XARELTO) PO SCH (18:29)
[2022-06-08] MEDS: QUEtiapine FUMARATE 25 MG TAB PO SCH (18:29)
[2022-06-08] MEDS: ROSUVASTATIN 10 MG TAB (CRESTOR) PO SCH (21:18)
[2022-06-08] MEDS: TERAZOSIN 1 MG CAP PO SCH (21:18)
[2022-06-08] MEDS: FINASTERIDE 5MG TAB PO SCH (21:19)
[2022-06-08 21:38] VITALS: BP 137/75
[2022-06-09 06:00] VITALS: BP 135/77
[2022-06-09 06:20] LABS: HEMATOCRIT 35.4 % (42.0-52.0); HEMOGLOBIN 11.5 g/dl (13.5-17.5); MEAN CORPUSCULAR HEMOGLOBIN 30.3 pg (27.0-33.0); MEAN CORPUSCULAR HGB CONC 32.5 g/dl (32.0-36.5); MEAN CORPUSCULAR VOLUME 93.2 fl (80.0-96.0); PLATELET COUNT, AUTOMATED 215 10^3/uL (150-450); WHITE BLOOD COUNT 7.1 10^3/uL (4.0-10.0)
[2022-06-09 07:16] LABS: BLOOD UREA NITROGEN 20 MG/DL (9-23); CALCIUM LEVEL 8.5 MG/DL (8.3-10.6); CARBON DIOXIDE LEVEL 28 MMOL/L (20-31); CHLORIDE LEVEL 107 MMOL/L (98-107); GLOMERULAR FILTRATION RATE > 60.0 (>42); GLUCOSE, FASTING 117 MG/DL (74-106); POTASSIUM SERUM 3.7 MMOL/L (3.5-5.1); SODIUM LEVEL 142 MMOL/L (136-145)
[2022-06-09] MEDS: MULTIVITAMINS/MINERALS THERAP 1 TAB PO SCH (08:57)
[2022-06-09] MEDS: atenoloL 50 MG TAB PO SCH (08:57)
[2022-06-09] MEDS: FOLIC ACID 1MG TAB PO SCH (08:58)
[2022-06-09] MEDS: BISACODYL 10MG SUPP PR SCH (08:58)
[2022-06-09] MEDS: PANTOPRAZOLE 40MG TAB (PROTONIX) PO SCH (08:58)
[2022-06-09] MEDS: SENOKOT S TAB PO SCH ×2 (08:58→20:50)
[2022-06-09] MEDS: ANALGESIC BALM CRM 3OZ TOP SCH ×4 (08:59→20:53)
[2022-06-09 14:00] VITALS: BP 122/78
[2022-06-09] MEDS: RIVAROXABAN 20MG TAB (XARELTO) PO SCH (18:25)
[2022-06-09] MEDS: QUEtiapine FUMARATE 25 MG TAB PO SCH (18:25)
[2022-06-09] MEDS: ROSUVASTATIN 10 MG TAB (CRESTOR) PO SCH (20:49)
[2022-06-09] MEDS: TERAZOSIN 1 MG CAP PO SCH (20:50)
[2022-06-09] MEDS: FINASTERIDE 5MG TAB PO SCH (20:50)
[2022-06-09 22:00] VITALS: BP 118/63
[2022-06-09] MEDS ORDERED: MIRALAX *UNIT DOSE* 17GM PACKET PO PRN (22:20)
[2022-06-10 06:00] VITALS: BP 122/63
[2022-06-10 06:21] LABS: HEMATOCRIT 33.8 % (42.0-52.0); HEMOGLOBIN 11.5 g/dl (13.5-17.5); MEAN CORPUSCULAR HEMOGLOBIN 31.3 pg (27.0-33.0); MEAN CORPUSCULAR VOLUME 92.1 fl (80.0-96.0); PLATELET COUNT, AUTOMATED 196 10^3/uL (150-450); RED BLOOD COUNT 3.67 10^6/uL (4.30-6.10); WHITE BLOOD COUNT 6.5 10^3/uL (4.0-10.0)
[2022-06-10 06:49] LABS: BLOOD UREA NITROGEN 20 MG/DL (9-23); CALCIUM LEVEL 8.9 MG/DL (8.3-10.6); CARBON DIOXIDE LEVEL 26 MMOL/L (20-31); CHLORIDE LEVEL 107 MMOL/L (98-107); CREATININE FOR GFR 0.81 MG/DL (0.70-1.30); GLOMERULAR FILTRATION RATE > 60.0 (>42); GLUCOSE, FASTING 103 MG/DL (74-106); POTASSIUM SERUM 3.9 MMOL/L (3.5-5.1); SODIUM LEVEL 141 MMOL/L (136-145)
[2022-06-10] MEDS: MULTIVITAMINS/MINERALS THERAP 1 TAB PO SCH (08:51)
[2022-06-10] MEDS: PANTOPRAZOLE 40MG TAB (PROTONIX) PO SCH (08:52)
[2022-06-10] MEDS: FOLIC ACID 1MG TAB PO SCH (08:52)
[2022-06-10] MEDS: SENOKOT S TAB PO SCH ×2 (08:59→21:42)
[2022-06-10] MEDS: BISACODYL 10MG SUPP PR SCH ×2 (08:59→09:00)
[2022-06-10] MEDS: atenoloL 50 MG TAB PO SCH (08:59)
[2022-06-10] MEDS: ANALGESIC BALM CRM 3OZ TOP SCH ×5 (09:00→21:44)
[2022-06-10 14:00] VITALS: BP 131/65
[2022-06-10] MEDS: RIVAROXABAN 20MG TAB (XARELTO) PO SCH (17:57)
[2022-06-10] MEDS: QUEtiapine FUMARATE 25 MG TAB PO SCH (17:57)
[2022-06-10] MEDS: TERAZOSIN 1 MG CAP PO SCH (21:43)
[2022-06-10] MEDS: ROSUVASTATIN 10 MG TAB (CRESTOR) PO SCH (21:43)
[2022-06-10] MEDS: FINASTERIDE 5MG TAB PO SCH (21:43)
[2022-06-11 06:00] VITALS: BP 130/66
[2022-06-11] MEDS: FOLIC ACID 1MG TAB PO SCH (08:50)
[2022-06-11] MEDS: MULTIVITAMINS/MINERALS THERAP 1 TAB PO SCH (08:50)
[2022-06-11] MEDS: PANTOPRAZOLE 40MG TAB (PROTONIX) PO SCH (08:50)
[2022-06-11 08:52] VITALS: BP 127/68
[2022-06-11] MEDS: SENOKOT S TAB PO SCH (08:52)
[2022-06-11] MEDS: atenoloL 50 MG TAB PO SCH (08:52)
[2022-06-11] MEDS: ANALGESIC BALM CRM 3OZ TOP SCH (08:54)
[2022-06-11] MEDS: BISACODYL 10MG SUPP PR SCH (08:54)
[2022-06-11] MEDS ORDERED: THIAMINE 100 MG TAB PO SCH (09:00)
[2022-06-11] MEDS ORDERED: QUET1TAB17 PO (10:05)
[2022-06-11] MEDS ORDERED: FINA5TAB2 PO (10:05)
[2022-06-11] MEDS ORDERED: ATEN50TA2 PO (10:05)
[2022-06-11] MEDS ORDERED: FOLI1TAB11 PO (10:05)
[2022-06-11] MEDS ORDERED: AMLO1TAB25 PO (10:05)
[2022-06-11] MEDS ORDERED: SENN-52 PO (10:05)
[2022-06-11] MEDS ORDERED: TERA2CAP3 PO (10:05)
[2022-06-11] MEDS ORDERED: ACET1TAB55 PO (10:12)
[2022-06-11] MEDS ORDERED: MIRA1POW3 PO (10:12)
[2022-06-11] MEDS ORDERED: THIA100T7 PO (10:14)
== END 2022-06-11 11:05 | DRG 896 ==
LOC: EDBD 07:32 → M ED 10:01 → M ED INP 14:36 → ENRESERV 16:17 → M MS5PR 17:55 → OBSVTOIN 05-22 08:11 → M MS5PR 05-24 20:58
PROVIDERS: ADMIT General Practice; ATTEND Internal Medicine Nephrology
DX: F10.26 Alcohol dependence with alcohol-induced persisting amnestic disorder (principal); G93.41 Metabolic encephalopathy; I24.9 Acute ischemic heart disease, unspecified; E87.1 Hypo-osmolality and hyponatremia; Z68.41 Body mass index [BMI] 40.0-44.9, adult; E66.2 Morbid (severe) obesity with alveolar hypoventilation; K86.0 Alcohol-induced chronic pancreatitis; R86.1 Abnormal level of hormones in specimens from male genital organs; E53.8 Deficiency of other specified B group vitamins; K76.0 Fatty (change of) liver, not elsewhere classified; I10 Essential (primary) hypertension; E87.6 Hypokalemia; I16.0 Hypertensive urgency; J84.10 Pulmonary fibrosis, unspecified; R31.0 Gross hematuria; R31.9 Hematuria, unspecified; F41.1 Generalized anxiety disorder; K59.00 Constipation, unspecified; N40.0 Benign prostatic hyperplasia without lower urinary tract symptoms; K64.4 Residual hemorrhoidal skin tags; Z79.01 Long term (current) use of anticoagulants; Z86.711 Personal history of pulmonary embolism; R73.01 Impaired fasting glucose; G47.33 Obstructive sleep apnea (adult) (pediatric); M17.0 Bilateral primary osteoarthritis of knee; F10.239 Alcohol dependence with withdrawal, unspecified; Z66 Do not resuscitate

== ENCOUNTER → 2022-06-18 | Outpatient (REF) ==
[~2022-06-18] MED LIST changes: +ACET1TAB55 PO; +AMLO1TAB25 PO; +ATEN50TA2 PO; +CAPS42.54 TOP; +CYCL-707 PO; +DOXY100C3 PO; +DULO30CA9 PO; +FAMO40TA3 PO; +FINA5TAB2 PO; +FOLI1TAB11 PO; +LIDO5DIS41 TD; +MIRA1POW3 PO; +OMEP40CA5 PO; +QUET1TAB17 PO; +REFR0.5D8 OP; +ROSU40TA4 PO; +SENN-52 PO; +SUCR1ORA2 PO; +TERA2CAP3 PO; +THERTAB21 PO; +THIA100T7 PO; +TRAM50TA2 PO; +XARE20TA PO; +XIID5DRO OD; +ZOLP10TA2 PO; +med rec comment
[2022-06-18 11:47] LABS: HEMATOCRIT 36.3 % (42.0-52.0); HEMOGLOBIN 12.1 g/dl (13.5-17.5); MEAN CORPUSCULAR HEMOGLOBIN 30.8 pg (27.0-33.0); MEAN CORPUSCULAR HGB CONC 33.3 g/dl (32.0-36.5); MEAN CORPUSCULAR VOLUME 92.4 fl (80.0-96.0); PLATELET COUNT, AUTOMATED 239 10^3/uL (150-450); RED BLOOD COUNT 3.93 10^6/uL (4.30-6.10); WHITE BLOOD COUNT 8.1 10^3/uL (4.0-10.0)
[2022-06-18 12:25] LABS: IRON (FE) 47 UG/DL (65-175)
[2022-06-18 12:28] LABS: ALKALINE PHOSPHATASE 125 U/L (46-116); ALT/SGPT 55 U/L (7.0-40); AST/SGOT 44 U/L (<34); BILIRUBIN,TOTAL 1.5 MG/DL (0.3-1.2); BLOOD UREA NITROGEN 27 MG/DL (9-23); CALCIUM LEVEL 9.4 MG/DL (8.3-10.6); CARBON DIOXIDE LEVEL 26 MMOL/L (20-31); CHLORIDE LEVEL 106 MMOL/L (98-107); CREATININE FOR GFR 0.82 MG/DL (0.70-1.30); GLOMERULAR FILTRATION RATE > 60.0 (>42); GLUCOSE, FASTING 136 MG/DL (74-106); POTASSIUM SERUM 3.5 MMOL/L (3.5-5.1); SODIUM LEVEL 140 MMOL/L (136-145); VITAMIN B12 LEVEL 486 PG/ML (211-911)
== END ==
LOC: SKLAB3 09:16
PROVIDERS: ATTEND Internal Medicine
DX: D64.9 Anemia, unspecified (principal)

== ENCOUNTER → 2022-07-23 | Outpatient (REF) | payer MEDICARE | LOC: M SMT 16:57 | PROVIDERS: ATTEND Urology | DX: R33.9 Retention of urine, unspecified (principal) ==

== ENCOUNTER → 2022-10-31 | Outpatient (REF) | payer MEDICARE ==
[2022-10-31 12:51] LABS: APPEARANCE, URINE CLOUDY (CLEAR); BACTERIA, URINE AUTO 1+ (NEGATIVE); BILIRUBIN, URINE AUTO NEGATIVE (NEGATIVE); BLOOD, URINE BLOOD 3+ (NEGATIVE); CALCIUM OXALATE CRYSTALS MODERATE; COLOR, URINE AMBER (YELLOW); GLUCOSE, URINE (UA) AUTO NEGATIVE (NEGATIVE); KETONE, URINE AUTO NEGATIVE (NEGATIVE); LEUKOCYTE ESTERASE, URINE AUTO 2+ (NEGATIVE); MUCUS, URINE LARGE (NEGATIVE); NITRITE, URINE AUTO POSITIVE (NEGATIVE); PROTEIN, URINE AUTO 2+ mg/dL (NEGATIVE); RBC, URINE AUTO TNTC /HPF (0-3); SPECIFIC GRAVITY URINE AUTO 1.025 (1.002-1.035); SQUAMOUS EPITHELIAL CELL UR AU 1 /HPF (0-6); UROBILINOGEN, URINE AUTO 0.2 mg/dL (0.0-2.0); WBC, URINE AUTO TNTC /HPF (0-3)
== END ==
LOC: M SMT 12:01
PROVIDERS: ATTEND Urology
DX: N31.2 Flaccid neuropathic bladder, not elsewhere classified (principal); Z79.899 Other long term (current) drug therapy

== ENCOUNTER → 2023-02-11 | Outpatient (REF) | payer MEDICARE, OTHER ==
[2023-02-12 11:04] LABS: APPEARANCE, URINE TURBID (CLEAR); BACTERIA, URINE AUTO 2+ (NEGATIVE); BILIRUBIN, URINE AUTO NEGATIVE (NEGATIVE); BLOOD, URINE BLOOD 2+ (NEGATIVE); COLOR, URINE AMBER (YELLOW); GLUCOSE, URINE (UA) AUTO NEGATIVE (NEGATIVE); KETONE, URINE AUTO NEGATIVE (NEGATIVE); LEUKOCYTE ESTERASE, URINE AUTO 3+ (NEGATIVE); NITRITE, URINE AUTO NEGATIVE (NEGATIVE); PROTEIN, URINE AUTO 3+ mg/dL (NEGATIVE); RBC, URINE AUTO TNTC /HPF (0-3); SPECIFIC GRAVITY URINE AUTO 1.012 (1.002-1.035); SQUAMOUS EPITHELIAL CELL UR AU 0 /HPF (0-6); TRIPLE PHOSPHATE CRYSTALS LARGE; UROBILINOGEN, URINE AUTO 0.2 mg/dL (0.0-2.0); WBC, URINE AUTO TNTC /HPF (0-3)
== END ==
LOC: M SMT 10:17
PROVIDERS: ATTEND Nurse Practitioner Family
DX: R30.0 Dysuria (principal)

== ENCOUNTER → 2023-04-01 | Outpatient (REF) | payer OTHER, MEDICARE ==
[2023-04-01 17:48] LABS: APPEARANCE, URINE TURBID (CLEAR); BACTERIA, URINE AUTO 1+ (NEGATIVE); BILIRUBIN, URINE AUTO NEGATIVE (NEGATIVE); BLOOD, URINE BLOOD 2+ (NEGATIVE); COLOR, URINE AMBER (YELLOW); GLUCOSE, URINE (UA) AUTO NEGATIVE (NEGATIVE); KETONE, URINE AUTO NEGATIVE (NEGATIVE); LEUKOCYTE ESTERASE, URINE AUTO 2+ (NEGATIVE); NITRITE, URINE AUTO POSITIVE (NEGATIVE); PROTEIN, URINE AUTO 3+ mg/dL (NEGATIVE); RBC, URINE AUTO TNTC /HPF (0-3); SPECIFIC GRAVITY URINE AUTO 1.015 (1.002-1.035); SQUAMOUS EPITHELIAL CELL UR AU 0 /HPF (0-6); TRIPLE PHOSPHATE CRYSTALS SMALL; UROBILINOGEN, URINE AUTO 0.2 mg/dL (0.0-2.0); WBC, URINE AUTO 163 /HPF (0-3)
== END ==
LOC: M SMT 17:02
PROVIDERS: ATTEND Urology
DX: R33.9 Retention of urine, unspecified (principal)

== ENCOUNTER 2024-01-26 00:50 | Emergency (ER) | payer OTHER, MEDICARE ==
[~2024-01-26] VITALS: Ht 165.1 cm; Wt 109.0 kg
[~2024-01-26 00:50] MED LIST changes: -MIRA1POW3 PO; +MIRA33506 PO; -ROSU40TA4 PO; +ROSU40TA81 PO
[2024-01-26] MEDS: MORPHINE 4 MG/ML 1ML VIAL IV ONE (01:45)
[2024-01-26] MEDS: ONDANSETRON 4MG 2ML VIAL IV ONE (02:08)
[2024-01-26 02:23] LABS: BASO % 0.3 % (0.0-1.0); EOS % 0.4 % (0.0-3.0); HEMATOCRIT 38.2 % (42.0-52.0); HEMOGLOBIN 12.9 g/dl (13.5-17.5); LYMPH # 0.9 10^3/uL (1.5-5.0); LYMPH % 8.5 % (24.0-44.0); MEAN CORPUSCULAR HEMOGLOBIN 31.2 pg (27.0-33.0); MEAN CORPUSCULAR HGB CONC 33.8 g/dl (32.0-36.5); MEAN CORPUSCULAR VOLUME 92.5 fl (80.0-96.0); MONO # 0.1 10^3/uL (0.0-0.8); MONO % 0.9 % (2.0-8.0); NEUTROPHILS # 9.8 10^3/uL (1.5-8.5); NEUTROPHILS % 89.6 % (36.0-66.0); PLATELET COUNT, AUTOMATED 213 10^3/uL (150-450); RED BLOOD COUNT 4.13 10^6/uL (4.30-6.10)
[2024-01-26 02:45] LABS: ALBUMIN 3.3 G/DL (3.2-5.2); BILIRUBIN,DIRECT 1.5 MG/DL (<0.4); BILIRUBIN,TOTAL 2.4 MG/DL (0.3-1.2); TOTAL PROTEIN 6.5 G/DL (5.7-8.2)
[2024-01-26] MEDS: NS 1,000 ML IV ONE ×2 (03:09→08:47)
[2024-01-26] MEDS ORDERED: ISOVUE-370 76% 100ML VIAL As Ordered ONE (04:13)
[2024-01-26 04:56] LABS: BLOOD UREA NITROGEN 18 MG/DL (9-23); CALCIUM LEVEL 8.3 MG/DL (8.3-10.6); CARBON DIOXIDE LEVEL 24 MMOL/L (20-31); CHLORIDE LEVEL 110 MMOL/L (98-107); CREATININE FOR GFR 0.84 MG/DL (0.70-1.30); GLOMERULAR FILTRATION RATE > 60.0 (>42); GLUCOSE, FASTING 97 MG/DL (74-106); POTASSIUM SERUM 3.6 MMOL/L (3.5-5.1); SODIUM LEVEL 142 MMOL/L (136-145)
[2024-01-26] MEDS ORDERED: MORPHINE 4 MG/ML 1ML VIAL IV PRN (06:10)
[2024-01-26] MEDS ORDERED: MORPHINE 2 MG/ML 1ML VIAL IV PRN (06:10)
[2024-01-26] MEDS: PIPERACILLIN/TAZOBACTAM SOD 4.5 GM in D5W MINI-BAG PLUS 50 ML IV ONE ×2 (06:22→12:10)
[2024-01-26 08:18] LABS: ALBUMIN 2.8 G/DL (3.2-5.2); BILIRUBIN,DIRECT 2.6 MG/DL (<0.4); BILIRUBIN,TOTAL 3.9 MG/DL (0.3-1.2); TOTAL PROTEIN 5.4 G/DL (5.7-8.2)
[2024-01-26] MEDS ORDERED: AMLO1TAB24 PO (12:47)
[2024-01-26] MEDS ORDERED: OXYB5TAB14 PO (12:47)
[2024-01-26] MEDS ORDERED: MULT1TAB8 PO (12:47)
[2024-01-26] MEDS ORDERED: QUET1TAB17 PO (12:47)
[2024-01-26] MEDS ORDERED: TERA2CAP3 PO (12:47)
[2024-01-26] MEDS ORDERED: FOLI1TAB11 PO (12:47)
[2024-01-26] MEDS ORDERED: ATEN100T PO (12:47)
[2024-01-26] MEDS ORDERED: METO1TAB7 PO (12:47)
[2024-01-26] MEDS ORDERED: LIDO1PAD TOP (12:47)
[2024-01-26] MEDS ORDERED: HOME MED LIST COMPLETE! XX SCH (12:50)
[2024-01-26 14:38] VITALS: BP 112/54; TEMP 98.9; O2SAT 94
== END 2024-01-26 14:44 | disposition short-term general hospital (02) ==
LOC: M ED 00:50
DX: K80.62 Calculus of gallbladder and bile duct with acute cholecystitis without obstruction (principal); A41.9 Sepsis, unspecified organism; R16.1 Splenomegaly, not elsewhere classified; R00.0 Tachycardia, unspecified; K76.0 Fatty (change of) liver, not elsewhere classified; Z91.018 Allergy to other foods; Z79.899 Other long term (current) drug therapy
CPT/HCPCS: 36415; 74177; 74181; 76705; 80047; 80048; 80076; 81001; 83605; 83690; 85025; 87088; 87186; 93005; 93041; 96361; 96365; 96366; 96375; 99285; J2405; J2543; Q9967

== ENCOUNTER → 2024-04-08 | Outpatient (REF) | payer MEDICARE, OTHER ==
[~2024-04-08] MED LIST changes: +AMLO1TAB24 PO; +ATEN100T PO; +LIDO1PAD TOP; +METO1TAB7 PO; +MULT1TAB8 PO; +OXYB5TAB14 PO
[2024-04-08 18:15] LABS: APPEARANCE, URINE HAZY (CLEAR); BACTERIA, URINE AUTO 1+ (NEGATIVE); BILIRUBIN, URINE AUTO NEGATIVE (NEGATIVE); BLOOD, URINE BLOOD 3+ (NEGATIVE); COLOR, URINE STRAW (YELLOW); GLUCOSE, URINE (UA) AUTO NEGATIVE (NEGATIVE); KETONE, URINE AUTO NEGATIVE (NEGATIVE); LEUKOCYTE ESTERASE, URINE AUTO 2+ (NEGATIVE); MUCUS, URINE SMALL (NEGATIVE); NITRITE, URINE AUTO NEGATIVE (NEGATIVE); PROTEIN, URINE AUTO 1+ mg/dL (NEGATIVE); RBC, URINE AUTO TNTC /HPF (0-3); SPECIFIC GRAVITY URINE AUTO 1.004 (1.002-1.035); SQUAMOUS EPITHELIAL CELL UR AU 0 /HPF (0-6); UROBILINOGEN, URINE AUTO 0.2 mg/dL (0.0-2.0); WBC, URINE AUTO 69 /HPF (0-3)
== END ==
LOC: M SMT 17:03
PROVIDERS: ATTEND Physician Assistant
DX: R30.0 Dysuria (principal)

== ENCOUNTER → 2024-07-16 | Outpatient (REF) | payer OTHER ==
[2024-07-16 17:35] LABS: APPEARANCE, URINE HAZY (CLEAR); BACTERIA, URINE AUTO NEGATIVE (NEGATIVE); BILIRUBIN, URINE AUTO NEGATIVE (NEGATIVE); BLOOD, URINE BLOOD 3+ (NEGATIVE); COLOR, URINE YELLOW (YELLOW); GLUCOSE, URINE (UA) AUTO NEGATIVE (NEGATIVE); KETONE, URINE AUTO NEGATIVE (NEGATIVE); LEUKOCYTE ESTERASE, URINE AUTO 1+ (NEGATIVE); MUCUS, URINE SMALL (NEGATIVE); NITRITE, URINE AUTO NEGATIVE (NEGATIVE); PROTEIN, URINE AUTO 1+ mg/dL (NEGATIVE); RBC, URINE AUTO 161 /HPF (0-3); SPECIFIC GRAVITY URINE AUTO 1.005 (1.002-1.035); SQUAMOUS EPITHELIAL CELL UR AU 0 /HPF (0-6); UROBILINOGEN, URINE AUTO 0.2 mg/dL (0.0-2.0); WBC, URINE AUTO 19 /HPF (0-3)
== END ==
LOC: M SMT 16:51
PROVIDERS: ATTEND Physician Assistant
DX: R39.9 Unspecified symptoms and signs involving the genitourinary system (principal)

== ENCOUNTER 2024-08-31 13:51 | Inpatient (IN) | payer OTHER, MEDICARE ==
[~2024-08-31] VITALS: Ht 165.1 cm; Wt 100.0 kg
[~2024-08-31 13:51] MED LIST changes: +LIDO1ADH93 TD; -LIDO5DIS41 TD; +LIFI1DRO4 OD; -SUCR1ORA2 PO; +SUCR1ORA20 PO; -XIID5DRO OD
[2024-08-31 14:39] LABS: BASO # 0.1 10^3/uL (0.0-0.2); BASO % 0.8 % (0.0-1.0); EOS # 0.2 10^3/uL (0.0-0.5); EOS % 2.5 % (0.0-3.0); HEMATOCRIT 33.1 % (42.0-52.0); HEMOGLOBIN 11.3 g/dl (13.5-17.5); LYMPH # 1.2 10^3/uL (1.5-5.0); LYMPH % 16.6 % (24.0-44.0); MEAN CORPUSCULAR HEMOGLOBIN 30.5 pg (27.0-33.0); MEAN CORPUSCULAR HGB CONC 34.1 g/dl (32.0-36.5); MEAN CORPUSCULAR VOLUME 89.2 fl (80.0-96.0); MONO # 0.5 10^3/uL (0.0-0.8); MONO % 6.1 % (2.0-8.0); NEUTROPHILS # 5.5 10^3/uL (1.5-8.5); NEUTROPHILS % 73.7 % (36.0-66.0); PLATELET COUNT, AUTOMATED 174 10^3/uL (150-450); RED BLOOD COUNT 3.71 10^6/uL (4.30-6.10); WHITE BLOOD COUNT 7.5 10^3/uL (4.0-10.0)
[2024-08-31] MEDS ORDERED: ISOVUE-370 76% 100ML VIAL As Ordered ONE (15:03)
[2024-08-31 15:12] LABS: ETHYL ALCOHOL (ETHANOL) 0.006 % (0.000-0.010)
[2024-08-31 15:14] LABS: SALICYLATE LEVEL < 3.0 MG/DL (<30)
[2024-08-31 15:18] LABS: THYROID STIMULATING HORMONE 2.849 uIU/ML (0.55-4.78)
[2024-08-31 15:22] LABS: ALBUMIN 3.2 G/DL (3.2-5.2); ALKALINE PHOSPHATASE 102 U/L (40-129); ALT/SGPT 15 U/L (7.0-40); AST/SGOT 39 U/L (<34); BILIRUBIN,DIRECT 0.3 MG/DL (<0.4); BILIRUBIN,TOTAL 0.8 MG/DL (0.3-1.2); BLOOD UREA NITROGEN 14 MG/DL (9-23); CALCIUM LEVEL 8.7 MG/DL (8.3-10.6); CARBON DIOXIDE LEVEL 25 MMOL/L (20-31); CHLORIDE LEVEL 108 MMOL/L (98-107); CK-MB VALUE MASS < 1.0 NG/ML (<3.6); CPK CREATINE PHOSPHOKINASE 45 U/L (46-171); CREATININE FOR GFR 1.11 MG/DL (0.70-1.30); GLOMERULAR FILTRATION RATE 68.8 (>42); GLUCOSE, FASTING 107 MG/DL (74-106); MB/CK RELATIVE INDEX 2.22 (< OR =4); POTASSIUM SERUM 4.3 MMOL/L (3.5-5.1); SODIUM LEVEL 143 MMOL/L (136-145); TOTAL PROTEIN 5.8 G/DL (5.7-8.2)
[2024-08-31] MEDS: NS 500 ML IV ONE (15:27)
[2024-08-31 15:41] LABS: ABG BASE EXCESS -1.2 (-2.0-2.0); ABG HCO3 23.1 MMOL/L (22.0-26.0); ABG O2 SATURATION 94.8 % (95.0-99.0); ABG PARTIAL PRESSURE CO2 37.2 mmHg (35.0-45.0); ABG PARTIAL PRESSURE O2 78.1 mmHg (75.0-100.0); ABG STANDARD HCO3 23.4 MMOL/L. (22.0-26.0); ABG TOTAL CO2 24.2 MMOL/L (23.0-31.0); ABG pH (ARTERIAL) 7.411 UNITS (7.350-7.450)
[2024-08-31 15:42] LABS: INR 1.95; PARTIAL THROMBOPLASTIN TIME 35.2 SECONDS (24.8-34.2); PROTHROMBIN TIME 22.4 SECONDS (12.5-14.5)
[2024-08-31 16:16] LABS: CK-MB VALUE MASS < 1.0 NG/ML (<3.6)
[2024-08-31 16:17] LABS: CPK CREATINE PHOSPHOKINASE 40 U/L (46-171)
[2024-08-31 16:42] LABS: KETONE, URINE AUTO RFX TRACE mg/dL (NEGATIVE)
[2024-08-31 16:43] LABS: LEUKOCYTE ESTERASE UR AUTO RFX 3+ (NEGATIVE); NITRITE, URINE AUTO RFX NEGATIVE (NEGATIVE); RBC, URINE AUTO RFX 113 /HPF (0-3); WBC, URINE AUTO RFX 575 /HPF (0-3)
[2024-08-31 16:44] LABS: MUCUS, URINE RFX LARGE (NEGATIVE); SQUAM EPITHELIAL CELL UR AURFX 4 /HPF (0-6)
[2024-08-31 17:13] LABS: AMPHETAMINES LEVEL URINE NEGATIVE (NEGATIVE); BARBITURATES URINE NEGATIVE (NEGATIVE); CANNABINOIDS URINE NEGATIVE (NEGATIVE); PHENCYCLIDINE URINE NEGATIVE (NEGATIVE)
[2024-08-31 17:14] LABS: BENZODIAZEPINES URINE NEGATIVE (NEGATIVE); COCAINE METABOLITE URINE NEGATIVE (NEGATIVE); METHADONE URINE NEGATIVE (NEGATIVE); OPIATES URINE NEGATIVE (NEGATIVE)
[2024-08-31] MEDS: MULTIVITAMIN -ADULT INJECTION 10 ML, THIAMINE INJection 100 MG, FOLIC ACID 1 MG in NS (... IV ONE (17:22)
[2024-08-31] MEDS: cefTRIAXone SOD 1 GM in DEXTROSE 5% (D5W) ADV/MINI-BAG 50 ML IV ONE (17:39)
[2024-08-31] MEDS ORDERED: FINA5TAB2 PO (19:07)
[2024-08-31] MEDS ORDERED: HOME MED LIST COMPLETE! XX SCH (19:10)
[2024-08-31 19:24] LABS: C REACTIVE PROTEIN QUANTITATIV < 0.50 MG/DL (<1.0)
[2024-08-31 19:32] LABS: PROCALCITONIN 0.06 ng/ml
[2024-08-31 21:28] VITALS: BP 117/87; TEMP 97.2; O2SAT 96
[2024-08-31] MEDS: LR 1,000 ML IV SCH (22:05)
[2024-08-31] MEDS: QUEtiapine FUMARATE 25 MG TAB PO ONE (23:05)
[2024-09-01 04:49] VITALS: BP 108/62; TEMP 97.5; O2SAT 96
[2024-09-01] MEDS ORDERED: LIDOCAINE 5% (LIDODERM) PATCH TOP PRN (07:10)
[2024-09-01 07:23] LABS: HEMATOCRIT 31.2 % (42.0-52.0); HEMOGLOBIN 10.5 g/dl (13.5-17.5); MEAN CORPUSCULAR HEMOGLOBIN 30.1 pg (27.0-33.0); MEAN CORPUSCULAR HGB CONC 33.7 g/dl (32.0-36.5); MEAN CORPUSCULAR VOLUME 89.4 fl (80.0-96.0); PLATELET COUNT, AUTOMATED 154 10^3/uL (150-450); RED BLOOD COUNT 3.49 10^6/uL (4.30-6.10); WHITE BLOOD COUNT 5.3 10^3/uL (4.0-10.0)
[2024-09-01 07:49] LABS: ALBUMIN 2.7 G/DL (3.2-5.2); ALKALINE PHOSPHATASE 96 U/L (40-129); ALT/SGPT < 9 U/L (7.0-40); AST/SGOT 15 U/L (<34); BILIRUBIN,TOTAL 0.8 MG/DL (0.3-1.2); BLOOD UREA NITROGEN 10 MG/DL (9-23); CALCIUM LEVEL 8.4 MG/DL (8.3-10.6); CARBON DIOXIDE LEVEL 26 MMOL/L (20-31); CHLORIDE LEVEL 110 MMOL/L (98-107); CREATININE FOR GFR 0.95 MG/DL (0.70-1.30); GLUCOSE, FASTING 87 MG/DL (74-106); POTASSIUM SERUM 3.3 MMOL/L (3.5-5.1); SODIUM LEVEL 144 MMOL/L (136-145)
[2024-09-01] MEDS: RIVAROXABAN 20MG TAB PO SCH (08:30)
[2024-09-01] MEDS: cefTRIAXone SOD 2 GM in DEXTROSE 5% (D5W) ADV/MINI-BAG 50 ML IV SCH (08:30)
[2024-09-01] MEDS: OMEPRAZOLE 20MG CAP PO SCH (08:31)
[2024-09-01] MEDS: DULoxetine 30MG CAPSULE PO SCH (08:31)
[2024-09-01] MEDS: FOLIC ACID 1MG TAB PO SCH (08:31)
[2024-09-01] MEDS: FINASTERIDE 5MG TAB PO SCH (08:32)
[2024-09-01] MEDS: atenoloL 50 MG TAB PO SCH (08:33)
[2024-09-01] MEDS: amLODIPine 5 MG TAB PO SCH (08:33)
[2024-09-01] MEDS ORDERED: SENNA 8.6 MG TAB PO PRN (11:25)
[2024-09-01 12:00] VITALS: BP 127/65; TEMP 97.9; O2SAT 94
[2024-09-01] MEDS: MIRALAX *UNIT DOSE* 17GM PACKET PO ONE (13:00)
[2024-09-01] MEDS: POTASSIUM CHLORIDE 10MEQ SR TABLET PO ONE (13:32)
[2024-09-01] MEDS: SUCRALFATE SUSP 1GM/10ML UD PO SCH (13:32)
[2024-09-01] MEDS: SENNA 8.6 MG TAB PO ONE (13:32)
[2024-09-01 20:41] VITALS: BP 144/75; TEMP 98.1; O2SAT 97
[2024-09-01] MEDS ORDERED: PROHANCE 279.3MG/ML 5ML VIAL As Ordered ONE (21:12)
[2024-09-01] MEDS ORDERED: PROHANCE 279.3MG/ML 15ML VIAL As Ordered ONE (21:12)
[2024-09-01] MEDS: ROSUVASTATIN 10 MG TAB PO SCH (23:04)
[2024-09-01] MEDS: CYCLOBENZAPRINE 10MG TABLET PO SCH (23:05)
[2024-09-01] MEDS: TERAZOSIN 1 MG CAP PO SCH (23:08)
[2024-09-01] MEDS: VANCOMYCIN HCL 2,000 MG, VIAL MATE ADAPTER 1 EACH in NS 500 ML IV ONE (23:57)
[2024-09-02 05:09] VITALS: BP 134/69; TEMP 98.8; O2SAT 96
[2024-09-02 05:56] LABS: BASO # 0.1 10^3/uL (0.0-0.2); BASO % 1.1 % (0.0-1.0); EOS # 0.3 10^3/uL (0.0-0.5); EOS % 6.2 % (0.0-3.0); HEMATOCRIT 31.7 % (42.0-52.0); HEMOGLOBIN 10.7 g/dl (13.5-17.5); LYMPH # 1.4 10^3/uL (1.5-5.0); LYMPH % 28.8 % (24.0-44.0); MEAN CORPUSCULAR HEMOGLOBIN 30.8 pg (27.0-33.0); MEAN CORPUSCULAR HGB CONC 33.8 g/dl (32.0-36.5); MEAN CORPUSCULAR VOLUME 91.4 fl (80.0-96.0); MONO # 0.4 10^3/uL (0.0-0.8); MONO % 7.9 % (2.0-8.0); NEUTROPHILS # 2.6 10^3/uL (1.5-8.5); NEUTROPHILS % 55.4 % (36.0-66.0); PLATELET COUNT, AUTOMATED 144 10^3/uL (150-450); RED BLOOD COUNT 3.47 10^6/uL (4.30-6.10); WHITE BLOOD COUNT 4.7 10^3/uL (4.0-10.0)
[2024-09-02] MEDS: VANCOMYCIN HCL 1,250 MG, VIAL MATE ADAPTER 1 EACH in NS 250 ML IV SCH (06:03)
[2024-09-02 06:23] LABS: ALBUMIN 2.6 G/DL (3.2-5.2); ALKALINE PHOSPHATASE 92 U/L (40-129); ALT/SGPT < 9 U/L (7.0-40); AST/SGOT 16 U/L (<34); BILIRUBIN,TOTAL 0.7 MG/DL (0.3-1.2); BLOOD UREA NITROGEN 7 MG/DL (9-23); CALCIUM LEVEL 8.2 MG/DL (8.3-10.6); CARBON DIOXIDE LEVEL 24 MMOL/L (20-31); CHLORIDE LEVEL 112 MMOL/L (98-107); CREATININE FOR GFR 0.82 MG/DL (0.70-1.30); GLOMERULAR FILTRATION RATE > 90.0 (>42); GLUCOSE, FASTING 89 MG/DL (74-106); POTASSIUM SERUM 3.6 MMOL/L (3.5-5.1); SODIUM LEVEL 145 MMOL/L (136-145); TOTAL PROTEIN 4.9 G/DL (5.7-8.2)
[2024-09-02] MEDS: MIRALAX *UNIT DOSE* 17GM PACKET PO SCH (08:17)
[2024-09-02 12:00] VITALS: BP 133/66; TEMP 98.8
[2024-09-02 20:16] VITALS: TEMP 97.8
[2024-09-02] MEDS: VANCOMYCIN HCL 750 MG, VIAL MATE ADAPTER 1 EACH in NS 250 ML IV SCH (21:32)
[2024-09-02] MEDS: LOPERAMIDE 2 MG CAPLET PO ONE (23:00)
[2024-09-03] MEDS: diphenhydrAMINE 25MG CAP PO ONE (01:34)
[2024-09-03 04:00] VITALS: BP 141/87; TEMP 99; O2SAT 94
[2024-09-03 06:20] LABS: BASO % 0.7 % (0.0-1.0); EOS # 0.2 10^3/uL (0.0-0.5); EOS % 4.9 % (0.0-3.0); HEMOGLOBIN 10.9 g/dl (13.5-17.5); LYMPH # 1.5 10^3/uL (1.5-5.0); LYMPH % 32.7 % (24.0-44.0); MEAN CORPUSCULAR HEMOGLOBIN 30.9 pg (27.0-33.0); MEAN CORPUSCULAR HGB CONC 34.1 g/dl (32.0-36.5); MEAN CORPUSCULAR VOLUME 90.7 fl (80.0-96.0); MONO # 0.4 10^3/uL (0.0-0.8); MONO % 8.2 % (2.0-8.0); NEUTROPHILS # 2.4 10^3/uL (1.5-8.5); NEUTROPHILS % 53.1 % (36.0-66.0); PLATELET COUNT, AUTOMATED 151 10^3/uL (150-450); RED BLOOD COUNT 3.53 10^6/uL (4.30-6.10); WHITE BLOOD COUNT 4.5 10^3/uL (4.0-10.0)
[2024-09-03 06:46] LABS: ALBUMIN 2.6 G/DL (3.2-5.2); ALKALINE PHOSPHATASE 93 U/L (40-129); ALT/SGPT 9 U/L (7.0-40); AST/SGOT 14 U/L (<34); BILIRUBIN,TOTAL 0.8 MG/DL (0.3-1.2); BLOOD UREA NITROGEN 7 MG/DL (9-23); CALCIUM LEVEL 8.5 MG/DL (8.3-10.6); CARBON DIOXIDE LEVEL 25 MMOL/L (20-31); CHLORIDE LEVEL 111 MMOL/L (98-107); CREATININE FOR GFR 0.85 MG/DL (0.70-1.30); GLOMERULAR FILTRATION RATE > 90.0 (>42); GLUCOSE, FASTING 93 MG/DL (74-106); POTASSIUM SERUM 3.2 MMOL/L (3.5-5.1); SODIUM LEVEL 146 MMOL/L (136-145); TOTAL PROTEIN 5.1 G/DL (5.7-8.2)
[2024-09-03] MEDS: KCL 10MEQ/100ML SWI (KRUN) 10 MEQ in IV 1 EA IV SCH (08:23)
[2024-09-03] MEDS: VANCOMYCIN HCL 1,500 MG, VIAL MATE ADAPTER 1 EACH in NS 500 ML IV SCH (10:26)
[2024-09-03 12:00] VITALS: BP 133/65; TEMP 98.4; O2SAT 97
[2024-09-03] MEDS: SODIUM CHLORIDE 0.9% INJ 10 ML SYR IV SCH (18:06)
[2024-09-03] MEDS: traMADol 50 MG TAB PO PRN (20:25)
[2024-09-03] MEDS: SODIUM CHLORIDE 0.9% INJ 10 ML SYR IV PRN (20:26)
[2024-09-03 20:29] VITALS: BP 141/79; TEMP 99.1; O2SAT 96
[2024-09-03 20:42] VITALS: BP 141/77; TEMP 99; O2SAT 93
[2024-09-04 05:26] VITALS: BP 138/78; TEMP 98.1; O2SAT 95
[2024-09-04 06:28] LABS: HEMATOCRIT 32.8 % (42.0-52.0); HEMOGLOBIN 11.1 g/dl (13.5-17.5); MEAN CORPUSCULAR HEMOGLOBIN 30.2 pg (27.0-33.0); MEAN CORPUSCULAR HGB CONC 33.8 g/dl (32.0-36.5); MEAN CORPUSCULAR VOLUME 89.1 fl (80.0-96.0); PLATELET COUNT, AUTOMATED 150 10^3/uL (150-450); RED BLOOD COUNT 3.68 10^6/uL (4.30-6.10); WHITE BLOOD COUNT 4.9 10^3/uL (4.0-10.0)
[2024-09-04 07:06] LABS: ALBUMIN 2.7 G/DL (3.2-5.2); ALKALINE PHOSPHATASE 91 U/L (40-129); ALT/SGPT 11 U/L (7.0-40); AST/SGOT 14 U/L (<34); BILIRUBIN,TOTAL 0.8 MG/DL (0.3-1.2); BLOOD UREA NITROGEN 6 MG/DL (9-23); CALCIUM LEVEL 8.6 MG/DL (8.3-10.6); CARBON DIOXIDE LEVEL 25 MMOL/L (20-31); CHLORIDE LEVEL 110 MMOL/L (98-107); GLOMERULAR FILTRATION RATE > 90.0 (>42); GLUCOSE, FASTING 88 MG/DL (74-106); POTASSIUM SERUM 3.8 MMOL/L (3.5-5.1); SODIUM LEVEL 144 MMOL/L (136-145); TOTAL PROTEIN 5.1 G/DL (5.7-8.2)
[2024-09-04 07:18] LABS: ATYPICAL LYMPH 3 % (0-5); EOSINOPHILS 3 % (0-3); LYMPHOCYTES 31 % (16-44); MONOCYTES 5 % (0-5); NEUTROPHILS 57 % (28-66)
[2024-09-04 07:24] LABS: PLATELET ESTIMATE NORMAL (NORMAL); SCHISTOCYTES 1+
[2024-09-04 12:00] VITALS: BP 107/62; TEMP 98.4
[2024-09-04 21:22] VITALS: BP 120/65; TEMP 98.6; O2SAT 96
[2024-09-05 04:33] VITALS: BP 125/64; TEMP 98.1; O2SAT 95
[2024-09-05 07:28] LABS: ALBUMIN 2.6 G/DL (3.2-5.2); ALKALINE PHOSPHATASE 89 U/L (40-129); ALT/SGPT < 9 U/L (7.0-40); AST/SGOT 12 U/L (<34); BILIRUBIN,TOTAL 0.8 MG/DL (0.3-1.2); BLOOD UREA NITROGEN 7 MG/DL (9-23); CALCIUM LEVEL 8.3 MG/DL (8.3-10.6); CARBON DIOXIDE LEVEL 24 MMOL/L (20-31); CHLORIDE LEVEL 109 MMOL/L (98-107); CREATININE FOR GFR 0.76 MG/DL (0.70-1.30); GLOMERULAR FILTRATION RATE > 90.0 (>42); GLUCOSE, FASTING 88 MG/DL (74-106); POTASSIUM SERUM 3.6 MMOL/L (3.5-5.1); SODIUM LEVEL 141 MMOL/L (136-145)
[2024-09-05 12:00] VITALS: BP 122/64; TEMP 98.4
[2024-09-05 21:14] VITALS: BP 134/78; TEMP 98.6; O2SAT 98
[2024-09-06 04:00] VITALS: BP 128/73; TEMP 98.6; O2SAT 95
[2024-09-06 06:28] LABS: ALBUMIN 2.8 G/DL (3.2-5.2); ALKALINE PHOSPHATASE 89 U/L (40-129); ALT/SGPT 11 U/L (7.0-40); AST/SGOT 14 U/L (<34); BILIRUBIN,TOTAL 0.7 MG/DL (0.3-1.2); BLOOD UREA NITROGEN 6 MG/DL (9-23); CALCIUM LEVEL 8.6 MG/DL (8.3-10.6); CARBON DIOXIDE LEVEL 24 MMOL/L (20-31); CHLORIDE LEVEL 111 MMOL/L (98-107); CREATININE FOR GFR 0.79 MG/DL (0.70-1.30); GLOMERULAR FILTRATION RATE > 90.0 (>42); GLUCOSE, FASTING 94 MG/DL (74-106); POTASSIUM SERUM 3.5 MMOL/L (3.5-5.1); SODIUM LEVEL 143 MMOL/L (136-145); TOTAL PROTEIN 5.3 G/DL (5.7-8.2)
[2024-09-06] MEDS: POTASSIUM CHLORIDE 10MEQ SR TABLET PO ONE (08:38)
[2024-09-06 08:40] VITALS: BP 129/69
[2024-09-06 12:00] VITALS: BP 127/68; TEMP 99; O2SAT 93
[2024-09-06] MEDS ORDERED: PROBCAP14 PO (12:32)
[2024-09-06 15:50] LABS: C REACTIVE PROTEIN QUANTITATIV < 0.50 MG/DL (<1.0)
[2024-09-06] MEDS ORDERED: AMOX875T2 PO (17:50)
[2024-09-06] MEDS ORDERED: AMOX500C PO (17:58)
[2024-09-06] MEDS ORDERED: AUGMENTIN 875 MG TAB PO SCH (21:00)
== END 2024-09-06 18:45 | disposition home or self-care (01) | DRG 698 ==
LOC: EDBD 13:51 → M ED 13:51 → M ED INP 17:44 → M MS5PR 21:20
PROVIDERS: ADMIT Internal Medicine; ATTEND Student in an Organized Health Care Education/Training Program
DX: T83.511A Infection and inflammatory reaction due to indwelling urethral catheter, initial encounter (principal); I33.0 Acute and subacute infective endocarditis; G93.41 Metabolic encephalopathy; E87.20 Acidosis, unspecified; K86.0 Alcohol-induced chronic pancreatitis; N39.0 Urinary tract infection, site not specified; K70.9 Alcoholic liver disease, unspecified; E78.5 Hyperlipidemia, unspecified; I10 Essential (primary) hypertension; N40.0 Benign prostatic hyperplasia without lower urinary tract symptoms; K21.9 Gastro-esophageal reflux disease without esophagitis; F39 Unspecified mood [affective] disorder; K59.00 Constipation, unspecified; K76.0 Fatty (change of) liver, not elsewhere classified; E66.01 Morbid (severe) obesity due to excess calories; G47.33 Obstructive sleep apnea (adult) (pediatric); Z79.01 Long term (current) use of anticoagulants; Z86.711 Personal history of pulmonary embolism; Z86.718 Personal history of other venous thrombosis and embolism; Y84.6 Urinary catheterization as the cause of abnormal reaction of the patient, or of later complication, without mention of misadventure at the time of the procedure; R29.6 Repeated falls; Z79.899 Other long term (current) drug therapy; Z91.018 Allergy to other foods; Z66 Do not resuscitate; G89.29 Other chronic pain